=== PATIENT | male | born 1940 | race American Indian/Alaskan Native ===

== ENCOUNTER 2016-08-07 11:10 | Inpatient (IN) | payer MEDICARE ==
[2016-08-07] MEDS ORDERED: NACL 0.9% 500 ML 500 ML IV ONE (11:31)
[2016-08-07] MEDS ORDERED: ROCEPHIN IV ONE (11:50)
[2016-08-07] MEDS ORDERED: VANCOMYCIN/NS 1 GM/250 ML 1 GM/250 ML BAG IV ONE ×2 (11:50→17:01)
[2016-08-07] MEDS ORDERED: NACL 0.9% 1000 ML 1,000 ML IV ONE (11:50)
--- NOTE | 2016-08-07 11:55 | Emergency Department Report ---
ED Shortness of Breath HPI - General Chief Complaint: Dyspnea/Respdistress Stated Complaint: POSS CVA Time Seen by Provider: 08/07/16 11:46 Source: EMS Mode of arrival: Stretcher Limitations: Altered Mental Status - History of Present Illness MD Complaint: shortness of breath, cough -: Gradual Severity: moderate Pain Scale: 4 Quality: dull, aching Consistency: constant Improves With: oxygen Worsens With: nothing Known History Of: COPD, asthma Context: recent URI Associated Symptoms: cough, sputum production Treatments Prior to Arrival: none - Related Data Home Oxygen Therapy: No Home Medications Medication Instructions Recorded Confirmed Last Taken Allopurinol [Zyloprim] 300 mg PO QDAY 05/07/16 05/07/16 05/06/16 Previous Rx's Medication Instructions Recorded Last Taken Type Aspirin [Aspirin TAB] 325 mg PO QDAY tablet 05/18/16 Unknown Rx Colchicine [Colcrys] 0.6 mg PO QDAY tablet 05/18/16 Unknown Rx Enoxaparin [Lovenox] 40 mg SUB-Q QDAY@1000 syringe 05/18/16 Unknown Rx Famotidine [Pepcid] 10 mg PO BID tablet 05/18/16 Unknown Rx Hydrochlorothiazide [HCTZ] 25 mg PO QDAY tablet 05/18/16 Unknown Rx Lisinopril [Zestril TAB] 10 mg PO QDAY tablet 05/18/16 Unknown Rx Metoprolol [Lopressor TAB] 50 mg PO BID tablet 05/18/16 Unknown Rx Simvastatin [Zocor TAB] 20 mg PO QHS tablet 05/18/16 Unknown Rx Thiamine [Vitamin B-1] 100 mg PO QDAY tablet 05/18/16 Unknown Rx amLODIPine [Norvasc] 2.5 mg PO QDAY tablet 05/18/16 Unknown Rx Allergies Allergy/AdvReac Type Severity Reaction Status Date / Time No Known Allergies Allergy Unverified 05/06/16 19:38 ED Review of Systems ROS: Stated complaint: POSS CVA Other details as noted in HPI Comment: Unobtainable due to pts medical conditions ED Past Medical Hx - Past Medical History Hx Hypertension: Yes Hx CVA: Yes Hx Congestive Heart Failure: No Hx Diabetes: Yes Hx Asthma: No Hx COPD: No - Surgical History Additional Surgical History: unknown - Social History Smoking Status: Unknown if ever smoked Substance Use Type: None - Medications Home Medications: Home Medications Medication Instructions Recorded Confirmed Last Taken Type Allopurinol [Zyloprim] 300 mg PO QDAY 05/07/16 05/07/16 05/06/16 History Aspirin [Aspirin TAB] 325 mg PO QDAY tablet 05/18/16 Unknown Rx Colchicine [Colcrys] 0.6 mg PO QDAY tablet 05/18/16 Unknown Rx Enoxaparin [Lovenox] 40 mg SUB-Q QDAY@1000 syringe 05/18/16 Unknown Rx Famotidine [Pepcid] 10 mg PO BID tablet 05/18/16 Unknown Rx Hydrochlorothiazide [HCTZ] 25 mg PO QDAY tablet 05/18/16 Unknown Rx Lisinopril [Zestril TAB] 10 mg PO QDAY tablet 05/18/16 Unknown Rx Metoprolol [Lopressor TAB] 50 mg PO BID tablet 05/18/16 Unknown Rx Simvastatin [Zocor TAB] 20 mg PO QHS tablet 05/18/16 Unknown Rx Thiamine [Vitamin B-1] 100 mg PO QDAY tablet 05/18/16 Unknown Rx amLODIPine [Norvasc] 2.5 mg PO QDAY tablet 05/18/16 Unknown Rx ED Physical Exam - General Limitations: Altered Mental Status General appearance: alert, obtunded, in distress - Head Head exam: Present: atraumatic, normocephalic - Eye Eye exam: Present: normal appearance - ENT ENT exam: Present: mucous membranes moist - Neck Neck exam: Present: normal inspection - Respiratory Respiratory exam: Present: respiratory distress, wheezes, rales, rhonchi - Cardiovascular Cardiovascular Exam: Present: regular rate, normal rhythm. Absent: systolic murmur, diastolic murmur, rubs, gallop - GI/Abdominal GI/Abdominal exam: Present: soft, normal bowel sounds - Rectal Rectal exam: Present: deferred - Extremities Exam Extremities exam: Present: normal inspection - Back Exam Back exam: Present: normal inspection - Neurological Exam Neurological exam: Present: alert - Psychiatric Psychiatric exam: Present: normal affect, normal mood - Skin Skin exam: Present: warm, dry, intact, normal color. Absent: rash ED Course Vital Signs 08/07/16 08/07/16 11:25 12:33 Temperature 99.5 F 99.8 F H Pulse Rate 78 84 Respiratory 24 22 Rate Blood Pressure 143/81 Blood Pressure 150/84 [Left] O2 Sat by Pulse 94 98 Oximetry ED Medical Decision Making - Lab Data Result diagrams: 08/07/16 12:03 08/07/16 12:03 - EKG Data Interpretation: no acute changes - Radiology Data Radiology results: report reviewed, image reviewed - Medical Decision Making patient will need admission for AMS , undermine etiology at this time , head ct neg cxr unchanged , elevated lactic acid , cultures done and abx given here in the ER Critical care attestation.: If time is entered above; I have spent that time in minutes in the direct care of this critically ill patient, excluding procedure time. ED Disposition Clinical Impression: CVA (cerebral vascular accident), Altered mental status, unspecified Disposition: OP ADMIT IP TO THIS HOSP Is pt being admited?: Yes Does the pt Need Aspirin: No Condition: Good Time of Disposition: 15:25
[2016-08-07 12:20] LABS: Basophils % (Auto) 0.5 % (0.0-1.8); Eosinophils % (Auto) 0.5 % (0.0-4.3); Hematocrit 38.5 % (35.5-45.6); Hemoglobin 12.6 gm/dl (11.8-15.2); Mean Corpuscular HGB Conc 33 % (32-34); Mean Corpuscular Hemoglobin 31 pg (28-32); Mean Corpuscular Volume 94 fl (84-94); Platelet Count 253 K/mm3 (140-440); White Blood Count 8.8 K/mm3 (4.5-11.0)
[2016-08-07 12:26] LABS: INR 1.03 (0.87-1.13)
[2016-08-07 12:27] LABS: Partial Thromboplastin Time 26.5 Sec. (24.2-36.6)
--- NOTE | 2016-08-07 12:37 | Admit Criteria Form ---
Admission Criteria Documentation: GENERAL ADMISSION CRITERIA (Place 'X' for any and all applicable criteria): Admission is indicated for ANY ONE of the following: [X ]I. Hemodynamic instability as indicated by ANY ONE of the following(1)(2 )(3)(4)(5): [ ]a) Vital sign abnormality not readily corrected by appropriate treatment within 12 to 24 hours indicated by ANY ONE of the following: [ ]i) Hypotension [ ]ii) Symptomatic Tachycardia unresponsive to treatment (eg , analgesia, fluids, sedation as indicated) [ ]iii) Orthostatic vital sign changes unresponsive to treatment (eg, fluids) [X ]b) Vital sign abnormality that is severe indicated by ANY ONE of the following: [X ]i) Inadequate perfusion indicated by ANY ONE of the following: [X ]1) Lactic acidosis (greater than 2 mmol/L) [ ]2) New abnormal capillary refill (greater than 3 seconds) [ ]3) Other metabolic acidosis (arterial pH less than 7.35) not otherwise explained [ ]4) Reduced urine output [ ]5) Altered mental status [ ]6) Myocardial Ischemia [ ]v) Mean arterial pressure[A] less than 60 mm Hg [ ]vi) Mean arterial pressure[A] less than 70 mm Hg after 30 minutes of appropriate treatment (eg, fluid resuscitation) [ ]vii) IV inotropic or vasopressor medication required to maintain adequate blood pressure or perfusion [ ]viii) Sustained heart rate greater than 120 beats per minute in adult or child 6 years or older[B]] [ ]II. Hypertension requiring inpatient treatment as indicated by ANY ONE of the following(6)(7)(8): [ ]a) SBP greater than 220 mm Hg or DBP greater than 120 mm Hg despite treatment [ ]b) SBP greater than 140 mm Hg or DBP greater than 100 mm Hg with evidence of acute end organ damage as indicated by ANY ONE of the following: [ ]i) Encephalopathy [ ]ii) Acute renal failure as indicated by new onset of ANY ONE of the following(9)(10)(11)(12)(13): [ ]1) A 3-fold rise in serum creatinine from baseline [ ]2) Serum creatinine greater than 4 mg/dL ( 354 micromoles/L) with acute rise greater than 0.5 mg/dL (44.2 micromoles/L) [ ]3) Reduction of more than 75% in estimated glomerular filtration rate from baseline [ ]4) Estimated glomerular filtration rate less than 35 mL/min/1.73m2 (0.59 mL/sec/1.73m2) in child up to 18 years of age [ ]5) Cessation of urine output indicated by ALL of the following: [ ]A. Adequate volume status [ ]B. Inadequate urine output as indicated by ANY ONE of the following: [ ]a. Urine output less than 0.3 mL/kg/hr for 24 hours [ ]b. Anuria (urine output less than 0.1 mL/kg/hr) for 12 hours [ ]iii) Aortic dissection [ ]iv) Myocardial ischemia [ ]v) Left ventricular heart failure [ ]vi) Retinal hemorrhage [ ]vii) Other significant finding [ ]c) Hypertension in child requiring inpatient treatment as indicated by ALL of the following(14)(15)(16): [ ]i) Outpatient treatment not effective, not available, or not appropriate [ ]ii) SBP or DBP greater than 95th percentile for age [ ]iii) Evidence of acute end organ damage as indicated by ANY ONE of the following: [ ]1) Altered mental status [ ]2) Acute renal failure as indicated by new onset of ANY ONE of the following(9)(10)(11)(12)(13): [ ]A. A 3-fold rise in serum creatinine from baseline [ ]B. Serum creatinine greater than 4 mg/dL (354 micromoles/L) with acute rise greater than 0.5 mg/dL (44.2 micromoles/L) [ ]C. Reduction of more than 75% in estimated glomerular filtration rate from baseline [ ]D. Estimated glomerular filtration rate less than 35 mL/min/1.73m2 (0.59 mL/sec/1.73m2)in child up to 18 years of age [ ]E. Cessation of urine output indicated by ALL of the following: [ ]a. Adequate volume status [ ]b. Inadequate urine output as indicated by ANY ONE of the following: [ ]1) Urine output less than 0.3 mL/kg/hr for 24 hours [ ]2) Anuria (urine output less than 0.1 mL/kg/hr) for 12 hours [ ]3) Severe headache [ ]4) Visual disturbance [ ]5) Retinal hemorrhage [ ]6) Other significant finding [ ]III. Acute cardiac or peripheral ischemia as indicated by ANY ONE of the following: [ ]a) Acute coronary syndrome(17)(18) [ ]b) Acute peripheral ischemia (eg, pulseless, cool, mottled, or cyanotic extremity)(19) [ ]IV. Cardiac arrhythmias or findings of immediate concern indicated by ANY ONE of the following(20)(21): [ ]a) Heart rhythms that are inherently dangerous or unstable indicated by ANY ONE of the following(22)(23)(24): [ ]i) Resuscitated ventricular fibrillation or cardiac arrest [ ]ii) Ventricular escape rhythm [ ]iii) Sustained ventricular tachycardia (30 seconds or more of ventricular rhythm at greater than 100 beats per minute) [ ]iv) Nonsustained ventricular tachycardia and ANY ONE of the following: [ ]1) Suspected cardiac ischemia as cause or consequence of ventricular tachycardia [ ]2) In setting of acute myocarditis [ ]b) Unstable cardiac conduction defects indicated by ANY ONE of the following(24)(25)(26): [ ]i) Type II second-degree atrioventricular block [ ]ii) Third-degree atrioventricular block [ ]iii) New-onset left bundle branch block with suspected myocardial ischemia [ ]c) Any heart rhythm and ANY ONE of the following(22)(23)(27)(28)( 29): [ ] i) Continuous long-term ECG monitoring needed (eg, initiation of drug requiring monitoring for more than 24 hours) [ ] ii) Patient has automatic implanted cardioverter defibrillator that is repeatedly firing, malfunctioning, or in need of immediate adjustment of settings beyond the scope of ambulatory or observation care. [ ]d) Heart rhythms of concern due to ANY ONE of the following: [ ]i) Hypotension [ ]ii) Respiratory distress [ ]iii) Association with other significant symptoms (eg, bradycardia with syncope or ongoing dizziness, supraventricular tachycardia with chest pain) (27)(28) (30) [ ] V. Severe heart failure as indicated by ANY ONE of the following ( 31)(32): [ ]a) Respiratory distress [ ]b) Hypotension [ ]c) Anasarca (refractory to outpatient therapy) [ ]d) Cardiac arrhythmias of immediate concern [ ]e) Myocardial ischemia [ ]. Respiratory abnormalities, including ANY ONE of the following(33)(34) (35)(36): [ ]a) Respiratory rate greater than 30 breaths per minute unresponsive to treatment [A] [ ]b) New saturation of arterial oxygen less than 90% [ ]c) New partial pressure of carbon dioxide greater than 44 mm Hg ( 5.9 kPa) [ ]d) Supplemental oxygen or respiratory treatments needed that are new or not performable at other levels of care [ ]e) New-onset cyanosis [ ]f) Inability to protect airway [ ]g) Chronic lung disease with severe deterioration (not responsive to emergency and observation care treatment as appropriate) as indicated by ANY ONE of the following(34)(36 ): [ ]i) SaO2 5% below baseline in patient with chronic hypoxemia [ ]ii) New requirement for supplemental oxygen to keep SaO2 at baseline or acceptable level [ ]iii) Required supplemental oxygen performable only in acute inpatient setting [ ]iv) Severe airflow or ventilation abnormalities [ ]v) Previously mobile patient unable to walk between rooms [ ]vi Inability to eat or sleep due to dyspnea [ ]vii) Rapid rate of exacerbation onset [ ]viii) Altered mental status ]VII. Severe airflow or ventilation abnormalities (not responsive to emergency and observation care treatment as appropriate) as indicated by ANY ONE of the following(33)(34)(35)(37): [ ]a) PCO2 greater than 42 mm Hg (5.6 kPa) and pH less than 7.35 (new ) [ ]b) Documented PCO2 increased more than 5 mm Hg (0.7 kPa) from disease baseline [ ]c) Airflow measurements [B] less than 60% of previous best or predicted (eg, peak expiratory flow rate less than 300 L/minute) despite intensive emergent treatment [C] [ ]d) Required respiratory treatments that are performable only in acute inpatient setting [ ]VIII. Impending or actual respiratory arrest ( Also use Respiratory Failure GRG for severe respiratory disease and long-term mechanical ventilation patients) [ ]IX. Neurologic abnormalities, including ANY ONE of the following: [ ]a) New findings that suggest ANY ONE of the following: [ ]i) DOOR PANELER infection(38) [ ]ii) Cerebral bleeding, ischemia, or vasospasm(39)(40) [ ]iii) Increased intracranial pressure, hydrocephalus, or cerebral edema(41)(42)(43) [ ]iv) Spinal cord injury(44) [ ]b) Uncontrolled seizures(45) [ ]c) New-onset coma (eg, [place] coma scale score less than 9) or unexplained abnormal mental status (eg, [place] coma scale score less than 14) [D](41)(46)(47) [ ]X. New-onset severe neurologic findings requiring inpatient care; examples include(42)(48)(49): [ ]a) Papilledema [ ]b) Cerebral edema [ ]c) Mass effect on CT scan [ ]XI. Suspected acute intra-abdominal process with peritoneal signs, abdominal mass, or similar findings (50)(51)(52) [ ]XII. Severe physiologic disorder remaining after emergency or observation level care (as appropriate) as indicated by ANY ONE of the following (53): [ ]a) Significant dehydration [ ]b) Diabetic ketoacidosis [ ]c) Hyperglycemic hyperosmolar state (eg, osmolality greater than 320 mOsm/kg (mmol/kg) [ ]d) Hypoglycemia [ ]e) Other (new) acid-base disorder with pH less than 7.35 or greater than 7.5(54) [ ]f) Thyroid storm (55) [ ]g) Myxedema coma (55) [ ]XIII. Abdominal abnormalities with ANY ONE of the following(56)(57): [ ]a) Absent bowel sounds with complete ileus [ ]b) Signs of intestinal obstruction or peritonitis [E] [ ]c) Nausea and vomiting that cannot be controlled with outpatient or observation care [ ]XIV. Acute renal failure as indicated by new onset of ANY ONE of the following(9)(10)(11)(12)(13): [ ]a) A 3-fold rise in serum creatinine from baseline [ ]b) Serum creatinine greater than 4 mg/dL (354 micromoles/L) with acute rise greater than 0.5 mg/dL (44.2 micromoles/L) [ ]c) Reduction of more than 75% in estimated glomerular filtration rate from baseline [ ]d) Estimated glomerular filtration rate less than 35 mL/min/ 1.73m2 (0.59 mL/sec/1.73m2) in child up to 18 years of age [ ]e) Cessation of urine output indicated by ALL of the following: [ ]i) Adequate volume status [ ]ii) Inadequate urine output as indicated by ANY ONE of the following: [ ]1) Urine output less than 0.3 mL/kg/hr for 24 hours [ ]2) Anuria (urine output less than 0.1 mL/kg/hr) for 12 hours [ ]XV. Significant uremic complications as indicated by ANY ONE of the following(58)(59)(60): [ ]a) Outpatient therapy is ineffective or not feasible for ANY ONE of the following: [ ]i) Severe heart failure [ ]ii) Severehypertension [ ]iii) Pleural effusion [ ]iv) Pericarditis or pericardial effusion [ ]b) Cardiac arrhythmias of immediate concern [ ]c) Intractable nausea or vomiting [ ]d) Recurrent seizures [ ]e) Encephalopathy [ ]f) Bleeding abnormalities (eg, platelet dysfunction) with active (eg, gastrointestinal) bleeding [ ]g) Dialysis indicated before long-term access or ambulatory arrangements can be made [ ]h) Significant metabolic or electrolyte abnormalities (eg, severe acidosis or hyperkalemia) [ ]XVI. High fever or other high-risk infection situation as indicated by ANY ONE of the following(61)(62)(63)(64): [ ]a) Outpatient and observation care antimicrobial treatment unavailable, not effective, or not appropriate [ ]b) Documented bacteremia [ ]c) Temperature greater than 40.5 degrees C (104.9 degrees F) ( oral) [ ]d) Temperature greater than 39.5 degrees C (103.1 degrees F) ( oral) or less than 36 degrees C (96.8 degrees F) (rectal) that does not respond to e treatment and observation care [ ] XVII. Temperature less than 95 degrees F (35 degrees C)(rectal)(65) [ ] XVIII. Severe nutritional abnormalities as indicated by ALL of the following (66)(67): [ ]a) Inability to tolerate or establish sufficient oral or other enteral nutrition in outpatient setting [ ]b) Parenteral nutrition regimen need that must be implemented on inpatient basis [ ] XIX. Severe electrolyte abnormalities indicated by ALL of the following(68) (69)(70): [ ]a) Electrolytes and associated findings are not as expected for patient baseline or acceptable treatment effects. [ ]b) Severe abnormalities indicated by ANY ONE of the following: [ ]i) Sodium less than 130 mEq/L (mmol/L) (new) [ ]ii)Sodium less than 135 mEq/L (mmol/L) with ANY ONE of the following: [ ]1) Uncorrectable (to near normal or chronic baseline) after trial of outpatient and emergency treatment [ ]2) Altered mental status [ ]3) Seizures [ ]4) Severe medical etiology requiring inpatient management (eg, heart failure, hypovolemia) [ ]iii) Sodium greater than 155 mEq/L (mmol/L) [ ]iv) Sodium greater than 150 mEq/L (mmol/L) with ANY ONE of the following: [ ]1) Uncorrectable (to near normal or chronic baseline) with outpatient and emergency treatment [ ]2) Altered mental status [ ]3) Seizures [ ]4) Severe medical etiology (eg, hypovolemia, diabetes insipidus) [ ]v) Potassium less than 2.5 mEq/L (mmol/L) despite outpatient and emergency treatment [ ]vi) Potassium less than 3 mEq/L (mmol/L) with ANY ONE of the following: [ ]1) Weakness [ ]2) Cardiac abnormality (eg, arrhythmia, conduction disturbance) [ ]3) Cardiac ischemia [ ]4) Ileus [ ]5) Ongoing medical cause requiring inpatient management (eg, acute renal wasting or SIADH) [ ]6) Other severe symptoms [ ]vii) Potassium greater than 6.5 mEq/L (mmol/L) [ ]viii) Potassium greater than 5 mEq/L (mmol/L) with ANY ONE of the following: [ ]1) Uncorrectable (to near normal or chronic baseline) with outpatient and emergency treatment [ ]2) Severe ECG findings [F] [ ]3) Acute worsening of renal failure (creatinine greater than 2.5 mg/dL (221 micromoles/L) or significant elevation for age and size) [ ]4) Severe weakness [ ]5) Severe medical etiology (eg, hemolysis, infection, drug overdose) [ ]ix) Calcium less than 7 mg/dL (1.75 mmol/L) despite outpatient and emergency treatment (72) [ ]x) Calcium less than 8 mg/dL (2 mmol/L) with significant symptoms or findings; examples include(72): [ ]1) Altered mental status [ ]2) Muscle spasms [ ]3) Seizures [ ]4) Breathing difficulty [ ]5) Cardiac abnormality (eg, arrhythmia or conduction disturbance) [ ]xi) Calcium greater than 14 mg/dL (3.5 mmol/L)(72) [ ]xii) Calcium greater than 12 mg/dL (3 mmol/L) with ANY ONE of the following(72): [ ]1) Uncorrectable (to near normal or chronic baseline) with outpatient and emergency treatment [ ]2) Significant dehydration or hypovolemia as indicated by ALL of the following(70)(73)(74): [ ]A. Not resolved with initial treatments [ ]B. Clinically significant dehydration as indicated by ANY ONE of the following: [ ]a. Vomiting refractory to outpatient treatment (ie, precluding oral rehydration) [ ]b. Inability to drink [ ]c. Hypernatremia or other electrolyte abnormality unable to be corrected with outpatient and emergency treatment [ ]d. Failure to remain hydrated with outpatient therapy [ ]e. Reduced urine output [ ]f. Hypotension [ ]g. Serious cause for dehydration requiring acute hospitalization (eg, bowel obstruction, increased intracranial pressure, infectious cause) [ ]h. Child with ANY ONE of the following(75): [ ]1) Severe abdominal tenderness [ ]2) Adequate care not available at home [ ]3) Severe dehydration ( greater than 9% loss of body weight) [ ]4) Significant symptoms or findings; examples include: [ ]A. Altered mental status [ ]B. Cardiac abnormality (eg, arrhythmia, conduction disturbance) [ ]C. Malignant etiology requiring inpatient treatment [ ]xiii) Phosphorus less than 1 mg/dL (0.32 mmol/L) [ ]xiv) Phosphorus less than 1.5 mg/dL (0.48 mmol/L) with ANY ONE of the following: [ ]1) Patient unresponsive to outpatient and emergency treatment [ ]2) Significant symptoms or findings; examples include: [ ]A. Weakness [ ]B. Altered mental status [ ]C. Breathing difficulty [ ]D. Seizures [ ]E. Rhabdomyolysis [ ]xv) Phosphorus greater than 10 mg/dL (3.2 mmol/L) [ ]xvi) Phosphorus greater than 4.5 mg/dL (1.45 mmol/L) (new) with ANY ONE of the following: [ ]1) Severe medical etiology (eg, crush injury, acute renal failure) [ ]2) Associated hypocalcemia with significant findings; examples include: [ ]A. Neurologic symptoms [ ]B. Altered mental status [ ]C. Muscle spasms [ ]D. Seizures [ ]E. Breathing difficulty [ ]F. Cardiac abnormality (eg, arrhythmia, conduction disturbance) [ ]xvii) Magnesium less than 1 mg/dL (0.41 mmol/L) [ ]xviii) Magnesium less than 1.5 mg/dL (0.62 mmol/L) with ANY ONE of the following: [ ]1) Patient unresponsive to outpatient and emergency treatment [ ]2) Associated hypocalcemia with significant findings; examples include: [ ]A. Altered mental status [ ]B. Muscle spasms [ ]C. Seizures [ ]D. Breathing difficulty [ ]E. Cardiac abnormality (eg, arrhythmia , conduction disturbance) [ ]3) Associated hypokalemia (potassium less than 3 mEq/L (mmol/L)) with risk of arrhythmia [ ]xix) Magnesium greater than 4 mEq/L (2 mmol/L) [ ]xx) Magnesium greater than 2.5 mEq/L (1.25 mmol/L) with significant symptoms or findings; examples include: [ ]1) Weakness [ ]2) Altered mental status [ ]3) Cardiac abnormality (eg, arrhythmia, conduction disturbance) [ ]4) Breathing difficulty [ ]5) Severe medical etiology (eg, renal failure, hypovolemia) [ ]xxi) Uric acid greater than 20 mg/dL (1190 micromoles/L)(76) [ ]xxii) Uric acid greater than 8 mg/dL (476 micromoles/L) with significant symptoms or findings of tumor lysis syndrome; examples include(76): [ ]1) Creatinine greater than 1.5 times upper limit of normal [ ]2) Cardiac abnormality (eg, arrhythmia, conduction disturbance) [ ]3) Seizure [ ]XX. Acute blood loss causing significant abnormality as indicated by ANY ONE of the following(77)(78): [ ]a) Hemoglobin less than 10 g/dL (100 g/L) (not baseline) [ ]b) Hematocrit less than 30% (0.30) (not baseline) [ ]c) Repeat hematocrit decreased more than 2% (0.02) [ ]d) Uncontrolled bleeding [ ]XXI. Severe anemia indicated by ANY ONE of the following(78)(79): [ ]a) Altered mental status [ ]b) Chest pain [ ]c) Exertional dyspnea [ ]d) Syncope [ ]e) Other findings suggesting inadequate perfusion [ ]f) Treatment with transfusion or volume replacement is ineffective at resolving ANY ONE of the following [G]: [ ]i) Tachycardia for age [ ]ii) Orthostatic vital sign changes as indicated by ANY ONE of the following(80): [ ]1) Fall in SBP of 20 mm Hg or more 1 to 3 minutes after patient sits or stands from recumbent position [ ]2) Fall in DBP of 10 mm Hg or more 1 to 3 minutes after patient sits or stands from recumbent position [ ]XXII. High-risk low platelet count as indicated by ANY ONE of the following( 81)(82): [ ]a) Severe or life-threatening bleeding (eg, intracranial, major gastrointestinal, or extensive mucosal bleeding), with any reduced platelet count [ ]b) Platelet count less than 20,000/mm3 (20 x109/L) with any active bleeding [ ]c) Platelet count less than 10,000/mm3 (10 x109/L) with minor purpura or petechiae [ ]d) Platelet count less than 5000/mm3 (5 x109/L) [ ]e) Low platelet count with hemolytic anemia [ ]XXIII. Disseminated intravascular coagulation(77)(83) [ ]XXIV. Severe adverse drug or systemic toxin reaction requiring inpatient treatment; examples include(84)(85): [ ]a) Serotonin syndrome(86) [ ]b) Neuroleptic malignant syndrome(86) [ ]c) Cholinergic syndrome with severe symptoms (eg, bronchorrhea, weakness, mental status changes, seizures) [ ]d) Sympathetic syndrome with severe symptoms (eg, seizures, mental status changes, cardiac dysrhythmias) [ ]e) Anticholinergic syndrome [ ]XXV. Severe pain requiring acute inpatient management as indicated by ALL of the following (87)(88)(89): [ ]a) Continuous or frequent (eg, every 2 to 4 hours) parenteral analgesics required [H] [ ]b) Rapid improvement expected from treatment or acute intervention (eg, surgery, anesthesia procedure) [ ]XXVI.Severe behavioral health issues judged unmanageable at a lower level of care (eg, residential) in a patient who is ANY ONE of the following(91) [ ]a) Acutely suicidal [ ]b) A danger to self (eg, self-mutilating or suicidal behavior) [ ]c) A danger to others (eg, assaultive or homicidal behavior) [ ]d) Incapacitated because of grave disability (eg, inability to provide for self at lower level of care) (92) [ ]XXVII. Inpatient monitoring needed; examples include(1)(3)(87)(93)(94)(95)(96 ): [ ]a) Vital signs, neurologic signs, or vascular checks more frequently than every 4 hours [ ]b) Cardiac or respiratory monitoring beyond the scope (eg, over 24 hours) of observation care [ ]c) Pulmonary artery catheter monitoring [ ]d) Suspected compartment syndrome(97) (98) [ ]e) Cerebral bleeding, hydrocephalus, or vasospasm monitoring [ ]f) Increased intracranial pressure or cerebral edema monitoring [ ]g) monitoring [ ]XXVIII. Treatment requiring inpatient care; examples include: [ ]a) IV fluid to replace significant ongoing losses (greater than 3 L/m2 per day)(53) [ ]b) High concentration oxygen (greater than 40%)(33)(99)(100) [ ]c) Frequent respiratory therapy (more frequently than every 4 hours) to maintain airflow rates greater than 60% of baseline(33)(99)(100) [ ]d) Epidural analgesia(87) [ ]e) IV anticoagulation, vasoactive, or antiarrhythmic medication(19 )(23) [ ]f) Acute thrombolytics (generally require 24 hours of observation )(101)(102) [ ]XXIX. Emergency procedures needed; examples include: [ ]a) Emergency inpatient surgery [ ]b) Temporary pacemaker placement(103) [ ]c) Chest tube placement with active evacuation (eg, suction, drainage)(104) [ ]d) Emergent cardioversion(105) [ ]e) Emergent cardiac or vascular procedures (eg, cardiac catheterization, angioplasty) (17)(18) [ ]f) Emergent dialysis access placement and institution(10)(106) [ ]g) Emergent pericardiocentesis(107) [ ]h) Emergent plasmapheresis or leukapheresis(83) [ ]i) Emergent tracheostomy The original [employer] content created by [employer] has been revised. The portions of the content which have been revised are identified through the use of italic text or in bold, and [employer] has neither reviewed nor approved the modified material. All other unmodified content is copyright [employer]. Please see references footnoted in the original [employer] edition 2016 Admission Criteria Met: Yes
[2016-08-07 12:38] LABS: Alanine Aminotransferase 11 units/L (7-56); Albumin 3.6 g/dL (3.9-5); Albumin/Globulin Ratio 1.1 %; Alkaline Phosphatase 51 units/L (35-129); Anion Gap 22 mmol/L; BUN/Creatinine Ratio 21.81; Blood Urea Nitrogen 24 mg/dL (9-20); Calcium 8.9 mg/dL (8.4-10.2); Carbon Dioxide 20 mmol/L (22-30); Glucose 125 mg/dL (75-100); Potassium 4.2 mmol/L (3.6-5.0); Sodium 138 mmol/L (137-145); Total Protein 6.8 g/dL (6.3-8.2)
--- NOTE | 2016-08-07 12:44 | XRay Report ---
PORTABLE CHEST INDICATION: Dyspnea. COMPARISON: 05/06/2016 FINDINGS: Portable, frontal chest radiograph demonstrates stable exaggerated cardiomediastinal silhouette and slightly crowded lung markings, given poorer inspiration. No pleural effusions or CHF. Stable bones. EKG leads. CONCLUSION: No acute chest process with poorer inspiration, as described. Thank you for the opportunity to participate in this patient's care.
[2016-08-07] MEDS ORDERED: ROCEPHIN/NS 1 GM/50 ML 1 GM/50 ML BAG IV ONE (13:17)
[2016-08-07 14:13] LABS: Bilirubin,Urine NEG (Negative); Blood,Urine NEG (Negative); Ketones,Urine NEG (Negative); Leukocyte Esterase,Urine NEG (Negative); Mucus,Urine FEW /HPF; Nitrite,Urine NEG (Negative); Protein,Urine <15 mg/dL mg/dL (Negative); Urobilinogen,Urine < 2.0 mg/dL (<2.0); WBC,Urine < 1.0 /HPF (0.0-6.0)
[2016-08-07 14:22] LABS: RBC,Urine < 1.0 /HPF (0.0-6.0)
--- NOTE | 2016-08-07 15:13 | History and Physical Report ---
History of Present Illness Chief complaint: weakness, difficulty breathing, History of present illness: 75 YO Male with HTN, CVA with LHP and Dysarthria, DM, COPD, Asthma, Gout, Chronic Respiratory Failure presents to ED for evaluation. Pt unable to provide history. Pt family report patient found to have weakness and difficulty breathing over the past 3 days with worsening symptoms for 1 day. No reports of fever, chills, CP, Palpitatons, NVD, Syncope, Falls, trauma, brbpr. Pt family acknowledge new onset weakness on the right side, inability to speak like he normally does. Past History Past Medical History: COPD, diabetes, heart failure, hypertension, stroke Past Surgical History: No surgical history, Other (reviewed) Social history: , lives with family. denies: smoking, alcohol abuse, prescription drug abuse Family history: diabetes, hypertension Medications and Allergies Allergies Allergy/AdvReac Type Severity Reaction Status Date / Time No Known Allergies Allergy Unverified 05/06/16 19:38 Home Medications Medication Instructions Recorded Confirmed Last Taken Type Allopurinol [Zyloprim] 300 mg PO QDAY 05/07/16 08/07/16 05/06/16 History Aspirin [Aspirin TAB] 325 mg PO QDAY tablet 05/18/16 08/07/16 Unknown Rx Colchicine [Colcrys] 0.6 mg PO QDAY tablet 05/18/16 08/07/16 Unknown Rx Enoxaparin [Lovenox] 40 mg SUB-Q QDAY@1000 syringe 05/18/16 08/07/16 Unknown Rx Famotidine [Pepcid] 10 mg PO BID tablet 05/18/16 08/07/16 Unknown Rx Hydrochlorothiazide [HCTZ] 25 mg PO QDAY tablet 05/18/16 08/07/16 Unknown Rx Lisinopril [Zestril TAB] 10 mg PO QDAY tablet 05/18/16 08/07/16 Unknown Rx Metoprolol [Lopressor TAB] 50 mg PO BID tablet 05/18/16 08/07/16 Unknown Rx Simvastatin [Zocor TAB] 20 mg PO QHS tablet 05/18/16 08/07/16 Unknown Rx Thiamine [Vitamin B-1] 100 mg PO QDAY tablet 05/18/16 08/07/16 Unknown Rx amLODIPine [Norvasc] 2.5 mg PO QDAY tablet 05/18/16 08/07/16 Unknown Rx Review of Systems ROS unobtainable: due to mental status Exam - Constitutional Vitals: Temp Pulse Resp BP Pulse Ox 99.8 F H 84 22 150/84 98 08/07/16 12:33 08/07/16 12:33 08/07/16 12:33 08/07/16 12:33 08/07/16 12:33 General appearance: Present: mild distress - EENT Eyes: Present: PERRL ENT: hearing intact - Neck Neck: Present: supple - Respiratory Respiratory effort: labored Respiratory: bilateral: diminished - Cardiovascular Rhythm: regular Heart Sounds: Present: S1 & S2 - Extremities Extremities: no ischemia Extremity abnormal: edema Peripheral Pulses: within normal limits - Abdominal General gastrointestinal: Present: soft, non-tender, non-distended Male genitourinary: Present: normal - Integumentary Integumentary: Present: clear, dry, decreased turgor - Musculoskeletal Musculoskeletal: right sided weakness, left sided weakness, generalized weakness - Psychiatric Psychiatric: no intact judgment & insight, no memory intact - Neurologic Neurologic: focal deficits, no moves all extremities, no gait normal Results - Labs CBC & Chem 7: 08/07/16 12:03 08/07/16 12:03 Labs: Abnormal lab results 08/07/16 08/07/16 08/07/16 Range/Units 12:03 12:03 12:03 Seg Neutrophils % 80.4 H (40.0-70.0) % Carbon Dioxide 20 L (22-30) mmol/L BUN 24 H (9-20) mg/dL Glucose 125 H (75-100) mg/dL Lactic Acid 2.90 H* (0.7-2.0) mmol/L Albumin 3.6 L (3.9-5) g/dL 08/07/16 Range/Units 14:25 Seg Neutrophils % (40.0-70.0) % Carbon Dioxide (22-30) mmol/L BUN (9-20) mg/dL Glucose (75-100) mg/dL Lactic Acid 2.20 H* (0.7-2.0) mmol/L Albumin (3.9-5) g/dL Assessment and Plan - Patient Problems (1) CVA (cerebral vascular accident) Current Visit: Yes Status: Acute Qualifiers: CVA mechanism: C Precerebral and cerebral artery: P Laterality of affected vessel: L Plan to address problem: Stroke Protocol: CT Head, MRI/MRA, Antiplatelet therapy, carotid doppler, PT/OT / Speech therapy, supportive care. (2) Metabolic encephalopathy Current Visit: Yes Status: Acute Plan to address problem: trat stroke, IVF replacement, supportive care. (3) Quadriplegia Current Visit: Yes Status: Acute Plan to address problem: secondary to CVA. PT /OT consulted, (4) Accelerated hypertension Current Visit: Yes Status: Acute Plan to address problem: monitor bp q shift, supportie care,Target systolic JADON overnight between 160-170 (5) DVT prophylaxis Current Visit: Yes Status: Acute
--- NOTE | 2016-08-07 15:20 | Cat Scan Report ---
CT HEAD WITHOUT CONTRAST INDICATION: Altered mental status. Last well known time 0500 hours. COMPARISON: 05/06/2016 CT and 05/09/2016 MRI. FINDINGS: Noncontrast head CT limited due to motion artifact with images repeated, though demonstrates stable age-appropriate ventricles and sulci and approximately 2.8 cm right parietal old ischemic hypodensity on axial image 40, series 4. Mild periventricular hypodensities. No definite acute infarct, hemorrhage, mass effect or midline shift. No abnormal extra-axial fluid collections. Normal posterior fossa with preserved basilar cisterns. Clear imaged paranasal sinuses and mastoid air cells. Atherosclerotic internal carotid artery calcifications. Normal calvarium and scalp. Few anterior mandibular teeth remaining. CONCLUSION: No acute intracranial CT abnormality or significant interval change, as described. Please correlate. Thank you for the opportunity to participate in this patient's care.
[2016-08-07] MEDS ORDERED: TYLENOL PO PRN (15:56)
[2016-08-07] MEDS ORDERED: SODIUM CHLORIDE FLUSH SYRINGE 10 ML IV PRN (15:56)
[2016-08-07] MEDS ORDERED: ZOFRAN IV PRN (15:56)
[2016-08-07] MEDS ORDERED: ATIVAN ONE (18:29)
[2016-08-07] MEDS ORDERED: KEPPRA 1,000 MG in D5W 100 ML IV SCH (18:37)
[2016-08-07] MEDS ORDERED: KEPPRA 1,000 MG/NS 0.75% 100ML 1,000 MG/100 ML BAG IV ONE (18:47)
[2016-08-07] MEDS ORDERED: ZOCOR PO SCH (22:00)
[2016-08-07] MEDS ORDERED: KEPPRA PO SCH (22:00)
[2016-08-07] MEDS: LOPRESSOR PO SCH (23:19)
[2016-08-07] MEDS: ZOCOR PO SCH (23:19)
[2016-08-07] MEDS: PEPCID PO SCH (23:19)
[2016-08-08] MEDS ORDERED: HCTZ PO SCH (10:00)
--- NOTE | 2016-08-08 10:03 | Progress Note ---
Assessment and Plan Assessment and plan: Right sided weakness. CT head neg. For MRI Brain today to r/o stroke Dysarthria. For MRI brain Hypertension. BP stable Diabetes mellitus type 2. Figerstick glucose qac and hs DVT prophylaxis with Lovenox History Interval history: Right sided weakness, Speech difficulty Shortness of breath Hospitalist Physical - Physical exam Narrative exam: Gen: appearance :Not in acute distress, HEENT: normocephalic, atraumatic Neck :supple no JVD Lungs: clear to auscultation bilaterally, no crackles, or wheezes Heart:S1 and S2 regular, no murmurs, no gallop, no rubs Abdomen soft, non-tender, non-distended, normal bowel sounds Extremities: no edema, no clubbing, or cyanosis Neuro : Awake, confused - Constitutional Vitals: Temp Pulse Resp BP Pulse Ox 97.5 F L 70 20 166/77 94 08/08/16 04:40 08/08/16 04:40 08/08/16 04:40 08/08/16 04:40 08/08/16 04:40 General appearance: Present: mild distress Results - Labs CBC & Chem 7: 08/07/16 12:03 08/08/16 20:57 Labs: Laboratory Last Values WBC 8.8 K/mm3 (4.5-11.0) 08/07/16 12:03 RBC 4.10 M/mm3 (3.65-5.03) 08/07/16 12:03 Hgb 12.6 gm/dl (11.8-15.2) 08/07/16 12:03 Hct 38.5 % (35.5-45.6) 08/07/16 12:03 MCV 94 fl (84-94) 08/07/16 12:03 MCH 31 pg (28-32) 08/07/16 12:03 MCHC 33 % (32-34) 08/07/16 12:03 RDW 15.0 % (13.2-15.2) 08/07/16 12:03 Plt Count 253 K/mm3 (140-440) 08/07/16 12:03 Lymph % (Auto) 13.4 % (13.4-35.0) 08/07/16 12:03 [place] % (Auto) 5.2 % (0.0-7.3) 08/07/16 12:03 Eos % (Auto) 0.5 % (0.0-4.3) 08/07/16 12:03 Baso % (Auto) 0.5 % (0.0-1.8) 08/07/16 12:03 Lymph # 1.2 K/mm3 (1.2-5.4) 08/07/16 12:03 [place] # 0.5 K/mm3 (0.0-0.8) 08/07/16 12:03 Eos # 0.0 K/mm3 (0.0-0.4) 08/07/16 12:03 Baso # 0.0 K/mm3 (0.0-0.1) 08/07/16 12:03 Seg Neutrophils % 80.4 % (40.0-70.0) H 08/07/16 12:03 Seg Neutrophils # 7.1 K/mm3 (1.8-7.7) 08/07/16 12:03 PT 13.4 Sec. (12.2-14.9) 08/07/16 12:03 INR 1.03 (0.87-1.13) 08/07/16 12:03 APTT 26.5 Sec. (24.2-36.6) 08/07/16 12:03 VBG pH 7.371 (7.320-7.420) 08/07/16 12:15 Sodium 138 mmol/L (137-145) 08/07/16 12:03 Potassium 4.2 mmol/L (3.6-5.0) 08/07/16 12:03 Chloride 100.0 mmol/L (98-107) 08/07/16 12:03 Carbon Dioxide 20 mmol/L (22-30) L 08/07/16 12:03 Anion Gap 22 mmol/L 08/07/16 12:03 BUN 24 mg/dL (9-20) H 08/07/16 12:03 Creatinine 1.1 mg/dL (0.8-1.5) 08/07/16 12:03 Estimated GFR > 60 ml/min 08/07/16 12:03 BUN/Creatinine Ratio 21.81 % 08/07/16 12:03 Glucose 125 mg/dL (75-100) H 08/07/16 12:03 POC Glucose 197 (70-105) H 08/07/16 19:11 Lactic Acid 2.20 mmol/L (0.7-2.0) H* 08/07/16 14:25 Calcium 8.9 mg/dL (8.4-10.2) 08/07/16 12:03 Total Bilirubin 0.30 mg/dL (0.1-1.2) 08/07/16 12:03 AST 10 units/L (5-40) 08/07/16 12:03 ALT 11 units/L (7-56) 08/07/16 12:03 Alkaline Phosphatase 51 units/L (35-129) 08/07/16 12:03 Troponin T < 0.010 ng/mL (0.00-0.029) 08/07/16 12:03 Total Protein 6.8 g/dL (6.3-8.2) 08/07/16 12:03 Albumin 3.6 g/dL (3.9-5) L 08/07/16 12:03 Albumin/Globulin Ratio 1.1 % 08/07/16 12:03 Triglycerides 123 mg/dL (2-149) 08/08/16 08:50 Cholesterol 141 mg/dL (50-199) 08/08/16 08:50 LDL Cholesterol Direct 85 mg/dL (50-130) 08/08/16 08:50 HDL Cholesterol 32 mg/dL (40-59) L 08/08/16 08:50 Cholesterol/HDL Ratio 4.40 % 08/08/16 08:50 Urine Color Yellow (Yellow) 08/07/16 12:34 Urine Turbidity Clear (Clear) 08/07/16 12:34 Urine pH 5.0 (5.0-7.0) 08/07/16 12:34 Ur Specific [place] 1.019 (1.003-1.030) 08/07/16 12:34 Urine Protein <15 mg/dl mg/dL (Negative) 08/07/16 12:34 Urine Glucose (UA) Neg mg/dL (Negative) 08/07/16 12:34 Urine Ketones Neg mg/dL (Negative) 08/07/16 12:34 Urine Blood Neg (Negative) 08/07/16 12:34 Urine Nitrite Neg (Negative) 08/07/16 12:34 Urine Bilirubin Neg (Negative) 08/07/16 12:34 Urine Urobilinogen < 2.0 mg/dL (<2.0) 08/07/16 12:34 Ur Leukocyte Esterase Neg (Negative) 08/07/16 12:34 Urine WBC (Auto) < 1.0 /HPF (0.0-6.0) 08/07/16 12:34 Urine RBC (Auto) < 1.0 /HPF (0.0-6.0) 08/07/16 12:34 U Epithel Cells (Auto) < 1.0 /HPF (0-13.0) 08/07/16 12:34 Hyaline Casts 1 /LPF 08/07/16 12:34 Urine Mucus Few /HPF 08/07/16 12:34
[2016-08-08] MEDS: ASPIRIN PO SCH ×2 (11:00→11:45)
[2016-08-08] MEDS: ZYLOPRIM PO SCH ×2 (11:00→11:46)
[2016-08-08] MEDS: NORVASC PO SCH ×2 (11:00→11:47)
[2016-08-08] MEDS: PEPCID PO SCH ×2 (11:00→11:45)
[2016-08-08] MEDS: LOPRESSOR PO SCH ×2 (11:00→11:46)
[2016-08-08] MEDS: COLCRYS PO SCH ×2 (11:00→11:46)
[2016-08-08] MEDS: ZESTRIL PO SCH ×2 (11:00→11:46)
[2016-08-08] MEDS ORDERED: NACL 0.9% 250ML 250 ML ONE (11:31)
[2016-08-08] MEDS: LOVENOX SUB-Q SCH ×2 (11:40→11:47)
[2016-08-08] MEDS: VITAMIN B-1 PO SCH ×2 (11:47→11:59)
[2016-08-08] MEDS: KEPPRA 1,000 MG in D5W 100 ML IV SCH ×2 (11:48→22:10)
[2016-08-08] MEDS: ATIVAN IV PRN (16:26)
[2016-08-08 20:40] LABS: Chloride TNR mmol/L (98-107); Potassium TNR mmol/L (3.6-5.0); Sodium TNR mmol/L (137-145)
[2016-08-08 20:41] LABS: Anion Gap TNR mmol/L; Carbon Dioxide TNR mmol/L (22-30)
[2016-08-08 20:42] LABS: BUN/Creatinine Ratio TNR; Blood Urea Nitrogen TNR mg/dL (9-20); Glucose TNR mg/dL (75-100)
[2016-08-08 20:43] LABS: Calcium TNR mg/dL (8.4-10.2)
[2016-08-08 21:24] LABS: Anion Gap 21 mmol/L; Blood Urea Nitrogen 15 mg/dL (9-20); Calcium 9.2 mg/dL (8.4-10.2); Carbon Dioxide 24 mmol/L (22-30); Chloride 98.7 mmol/L (98-107); Glucose 134 mg/dL (75-100); Potassium 3.8 mmol/L (3.6-5.0); Sodium 140 mmol/L (137-145)
[2016-08-09] MEDS: ZOCOR PO SCH (04:16)
[2016-08-09] MEDS: LOPRESSOR PO SCH ×2 (04:16→18:02)
[2016-08-09] MEDS: PEPCID PO SCH ×2 (04:16→18:05)
[2016-08-09] MEDS: KEPPRA 1,000 MG in D5W 100 ML IV SCH (12:15)
--- NOTE | 2016-08-09 14:59 | Progress Note ---
Assessment and Plan Assessment and plan: Right sided weakness. CT head neg. Still awaiting MRI to be done. Started on Aspirin. Encephalopathy. He is confused Dysarthria. For MRI brain Hypertension. BP stable Diabetes mellitus type 2. Figerstick glucose qac and hs DVT prophylaxis with Lovenox History Interval history: Right sided weakness, Speech difficulty Shortness of breath Hospitalist Physical - Physical exam Narrative exam: Gen: appearance :Not in acute distress, HEENT: normocephalic, atraumatic Neck :supple no JVD Lungs: clear to auscultation bilaterally, no crackles, or wheezes Heart:S1 and S2 regular, no murmurs, no gallop, no rubs Abdomen soft, non-tender, non-distended, normal bowel sounds Extremities: no edema, no clubbing, or cyanosis Neuro : Awake, confused - Constitutional Vitals: Temp Pulse Resp BP Pulse Ox 97.9 F 111 H 20 156/101 96 08/09/16 12:00 08/09/16 12:00 08/09/16 12:00 08/09/16 12:00 08/09/16 12:00 General appearance: Present: mild distress Results - Labs CBC & Chem 7: 08/07/16 12:03 08/08/16 20:57 Labs: Laboratory Last Values WBC 8.8 K/mm3 (4.5-11.0) 08/07/16 12:03 RBC 4.10 M/mm3 (3.65-5.03) 08/07/16 12:03 Hgb 12.6 gm/dl (11.8-15.2) 08/07/16 12:03 Hct 38.5 % (35.5-45.6) 08/07/16 12:03 MCV 94 fl (84-94) 08/07/16 12:03 MCH 31 pg (28-32) 08/07/16 12:03 MCHC 33 % (32-34) 08/07/16 12:03 RDW 15.0 % (13.2-15.2) 08/07/16 12:03 Plt Count 253 K/mm3 (140-440) 08/07/16 12:03 Lymph % (Auto) 13.4 % (13.4-35.0) 08/07/16 12:03 [place] % (Auto) 5.2 % (0.0-7.3) 08/07/16 12:03 Eos % (Auto) 0.5 % (0.0-4.3) 08/07/16 12:03 Baso % (Auto) 0.5 % (0.0-1.8) 08/07/16 12:03 Lymph # 1.2 K/mm3 (1.2-5.4) 08/07/16 12:03 [place] # 0.5 K/mm3 (0.0-0.8) 08/07/16 12:03 Eos # 0.0 K/mm3 (0.0-0.4) 08/07/16 12:03 Baso # 0.0 K/mm3 (0.0-0.1) 08/07/16 12:03 Seg Neutrophils % 80.4 % (40.0-70.0) H 08/07/16 12:03 Seg Neutrophils # 7.1 K/mm3 (1.8-7.7) 08/07/16 12:03 PT 13.4 Sec. (12.2-14.9) 08/07/16 12:03 INR 1.03 (0.87-1.13) 08/07/16 12:03 APTT 26.5 Sec. (24.2-36.6) 08/07/16 12:03 VBG pH 7.371 (7.320-7.420) 08/07/16 12:15 Sodium 140 mmol/L (137-145) 08/08/16 20:57 Potassium 3.8 mmol/L (3.6-5.0) 08/08/16 20:57 Chloride 98.7 mmol/L (98-107) 08/08/16 20:57 Carbon Dioxide 24 mmol/L (22-30) 08/08/16 20:57 Anion Gap 21 mmol/L 08/08/16 20:57 BUN 15 mg/dL (9-20) 08/08/16 20:57 Creatinine 1.0 mg/dL (0.8-1.5) 08/08/16 20:57 Estimated GFR > 60 ml/min 08/08/16 20:57 BUN/Creatinine Ratio 15.00 % 08/08/16 20:57 Glucose 134 mg/dL (75-100) H 08/08/16 20:57 POC Glucose 197 (70-105) H 08/07/16 19:11 Lactic Acid 2.20 mmol/L (0.7-2.0) H* 08/07/16 14:25 Calcium 9.2 mg/dL (8.4-10.2) 08/08/16 20:57 Total Bilirubin 0.30 mg/dL (0.1-1.2) 08/07/16 12:03 AST 10 units/L (5-40) 08/07/16 12:03 ALT 11 units/L (7-56) 08/07/16 12:03 Alkaline Phosphatase 51 units/L (35-129) 08/07/16 12:03 Troponin T < 0.010 ng/mL (0.00-0.029) 08/07/16 12:03 Total Protein 6.8 g/dL (6.3-8.2) 08/07/16 12:03 Albumin 3.6 g/dL (3.9-5) L 08/07/16 12:03 Albumin/Globulin Ratio 1.1 % 08/07/16 12:03 Triglycerides 123 mg/dL (2-149) 08/08/16 08:50 Cholesterol 141 mg/dL (50-199) 08/08/16 08:50 LDL Cholesterol Direct 85 mg/dL (50-130) 08/08/16 08:50 HDL Cholesterol 32 mg/dL (40-59) L 08/08/16 08:50 Cholesterol/HDL Ratio 4.40 % 08/08/16 08:50 Urine Color Yellow (Yellow) 08/07/16 12:34 Urine Turbidity Clear (Clear) 08/07/16 12:34 Urine pH 5.0 (5.0-7.0) 08/07/16 12:34 Ur Specific [place] 1.019 (1.003-1.030) 08/07/16 12:34 Urine Protein <15 mg/dl mg/dL (Negative) 08/07/16 12:34 Urine Glucose (UA) Neg mg/dL (Negative) 08/07/16 12:34 Urine Ketones Neg mg/dL (Negative) 08/07/16 12:34 Urine Blood Neg (Negative) 08/07/16 12:34 Urine Nitrite Neg (Negative) 08/07/16 12:34 Urine Bilirubin Neg (Negative) 08/07/16 12:34 Urine Urobilinogen < 2.0 mg/dL (<2.0) 08/07/16 12:34 Ur Leukocyte Esterase Neg (Negative) 08/07/16 12:34 Urine WBC (Auto) < 1.0 /HPF (0.0-6.0) 08/07/16 12:34 Urine RBC (Auto) < 1.0 /HPF (0.0-6.0) 08/07/16 12:34 U Epithel Cells (Auto) < 1.0 /HPF (0-13.0) 08/07/16 12:34 Hyaline Casts 1 /LPF 08/07/16 12:34 Urine Mucus Few /HPF 08/07/16 12:34
[2016-08-09] MEDS: COLCRYS PO SCH (18:02)
[2016-08-09] MEDS: ASPIRIN PO SCH (18:02)
[2016-08-09] MEDS: NORVASC PO SCH (18:02)
[2016-08-09] MEDS: VITAMIN B-1 PO SCH (18:05)
[2016-08-09] MEDS: ZYLOPRIM PO SCH (18:06)
[2016-08-09] MEDS: ZESTRIL PO SCH (18:06)
[2016-08-09] MEDS: LOVENOX SUB-Q SCH (18:42)
[2016-08-10] MEDS: KEPPRA 1,000 MG in D5W 100 ML IV SCH ×3 (00:35→22:17)
[2016-08-10] MEDS: ZOCOR PO SCH ×2 (04:09→22:09)
[2016-08-10] MEDS: LOPRESSOR PO SCH ×3 (04:09→22:09)
[2016-08-10] MEDS: PEPCID PO SCH ×3 (04:09→22:08)
--- NOTE | 2016-08-10 07:42 | Vascular Lab Report ---
CAROTID DUPLEX STUDY: RIGHT PSVEDV CCA PROX: 7110 CCA DIST:91580 ICA PROX: 8523 ICA MID:58222 ICA DIST:49023 ECA: 8613 VERT: 108 28 LEFT PSVEDV CCA PROX: 7915 CCA DIST: 6210 ICA PROX: 6514 ICA MID: 6818 ICA DIST:40477 ECA: 49 6 VERT: 80 16 REASON FOR EXAM: Stroke. COMMENTS ON THE RIGHT: Doppler frequency analysis is consistent with 16 to 49 percent diameter reduction of the internal carotid artery. Minimal amount of plaque is seen. The common carotid artery is patent. The external carotid artery is patent. The vertebral artery has antegrade flow. COMMENTS ON THE LEFT: Doppler frequency analysis is consistent with 16 to 49 percent diameter reduction of the internal carotid artery. Minimal amount of plaque is seen. The common carotid artery is patent. The external carotid artery is patent. The vertebral artery has antegrade flow. IMPRESSION: Less than 50% diameter reduction in the internal carotid arteries bilaterally. Consider repeat carotid artery duplex in 12 months.
--- NOTE | 2016-08-10 09:26 | Progress Note ---
Assessment and Plan Assessment and plan: Right sided weakness, likely acute ischemic stroke. CT head neg. Still awaiting MRI to be done. Continue on Aspirin. New onset seizure. MRI may give etiology. Neurology to evaluate Encephalopathy. He is confused Dysphagia. Modified Barium swallow done yesterday, start pureed diet Dysarthria. For MRI brain Hypertension. BP stable Diabetes mellitus type 2. Figerstick glucose qac and hs DVT prophylaxis with Lovenox History of stroke. Discussed with family at bedside. History Interval history: Right sided weakness, Difficulty swallowing Dysarthria Hospitalist Physical - Physical exam Narrative exam: Gen: appearance :Not in acute distress, HEENT: normocephalic, atraumatic Neck :supple no JVD Lungs: clear to auscultation bilaterally, no crackles, or wheezes Heart:S1 and S2 regular, no murmurs, no gallop, no rubs Abdomen soft, non-tender, non-distended, normal bowel sounds Extremities: no edema, no clubbing, or cyanosis Neuro : Awake, confused,dysarthria, weakness on left - Constitutional Vitals: Temp Pulse Resp BP Pulse Ox 98.6 F 89 20 151/91 93 08/10/16 04:50 08/10/16 04:50 08/10/16 01:17 08/10/16 04:50 08/10/16 04:50 Results - Labs CBC & Chem 7: 08/14/16 05:34 08/14/16 05:34 Labs: Laboratory Last Values WBC 8.8 K/mm3 (4.5-11.0) 08/07/16 12:03 RBC 4.10 M/mm3 (3.65-5.03) 08/07/16 12:03 Hgb 12.6 gm/dl (11.8-15.2) 08/07/16 12:03 Hct 38.5 % (35.5-45.6) 08/07/16 12:03 MCV 94 fl (84-94) 08/07/16 12:03 MCH 31 pg (28-32) 08/07/16 12:03 MCHC 33 % (32-34) 08/07/16 12:03 RDW 15.0 % (13.2-15.2) 08/07/16 12:03 Plt Count 253 K/mm3 (140-440) 08/07/16 12:03 Lymph % (Auto) 13.4 % (13.4-35.0) 08/07/16 12:03 [place] % (Auto) 5.2 % (0.0-7.3) 08/07/16 12:03 Eos % (Auto) 0.5 % (0.0-4.3) 08/07/16 12:03 Baso % (Auto) 0.5 % (0.0-1.8) 08/07/16 12:03 Lymph # 1.2 K/mm3 (1.2-5.4) 08/07/16 12:03 [place] # 0.5 K/mm3 (0.0-0.8) 08/07/16 12:03 Eos # 0.0 K/mm3 (0.0-0.4) 08/07/16 12:03 Baso # 0.0 K/mm3 (0.0-0.1) 08/07/16 12:03 Seg Neutrophils % 80.4 % (40.0-70.0) H 08/07/16 12:03 Seg Neutrophils # 7.1 K/mm3 (1.8-7.7) 08/07/16 12:03 PT 13.4 Sec. (12.2-14.9) 08/07/16 12:03 INR 1.03 (0.87-1.13) 08/07/16 12:03 APTT 26.5 Sec. (24.2-36.6) 08/07/16 12:03 VBG pH 7.371 (7.320-7.420) 08/07/16 12:15 Sodium 140 mmol/L (137-145) 08/08/16 20:57 Potassium 3.8 mmol/L (3.6-5.0) 08/08/16 20:57 Chloride 98.7 mmol/L (98-107) 08/08/16 20:57 Carbon Dioxide 24 mmol/L (22-30) 08/08/16 20:57 Anion Gap 21 mmol/L 08/08/16 20:57 BUN 15 mg/dL (9-20) 08/08/16 20:57 Creatinine 1.0 mg/dL (0.8-1.5) 08/08/16 20:57 Estimated GFR > 60 ml/min 08/08/16 20:57 BUN/Creatinine Ratio 15.00 % 08/08/16 20:57 Glucose 134 mg/dL (75-100) H 08/08/16 20:57 POC Glucose 131 (70-105) H 08/09/16 21:25 Lactic Acid 2.20 mmol/L (0.7-2.0) H* 08/07/16 14:25 Calcium 9.2 mg/dL (8.4-10.2) 08/08/16 20:57 Total Bilirubin 0.30 mg/dL (0.1-1.2) 08/07/16 12:03 AST 10 units/L (5-40) 08/07/16 12:03 ALT 11 units/L (7-56) 08/07/16 12:03 Alkaline Phosphatase 51 units/L (35-129) 08/07/16 12:03 Troponin T < 0.010 ng/mL (0.00-0.029) 08/07/16 12:03 Total Protein 6.8 g/dL (6.3-8.2) 08/07/16 12:03 Albumin 3.6 g/dL (3.9-5) L 08/07/16 12:03 Albumin/Globulin Ratio 1.1 % 08/07/16 12:03 Triglycerides 123 mg/dL (2-149) 08/08/16 08:50 Cholesterol 141 mg/dL (50-199) 08/08/16 08:50 LDL Cholesterol Direct 85 mg/dL (50-130) 08/08/16 08:50 HDL Cholesterol 32 mg/dL (40-59) L 08/08/16 08:50 Cholesterol/HDL Ratio 4.40 % 08/08/16 08:50 Urine Color Yellow (Yellow) 08/07/16 12:34 Urine Turbidity Clear (Clear) 08/07/16 12:34 Urine pH 5.0 (5.0-7.0) 08/07/16 12:34 Ur Specific [place] 1.019 (1.003-1.030) 08/07/16 12:34 Urine Protein <15 mg/dl mg/dL (Negative) 08/07/16 12:34 Urine Glucose (UA) Neg mg/dL (Negative) 08/07/16 12:34 Urine Ketones Neg mg/dL (Negative) 08/07/16 12:34 Urine Blood Neg (Negative) 08/07/16 12:34 Urine Nitrite Neg (Negative) 08/07/16 12:34 Urine Bilirubin Neg (Negative) 08/07/16 12:34 Urine Urobilinogen < 2.0 mg/dL (<2.0) 08/07/16 12:34 Ur Leukocyte Esterase Neg (Negative) 08/07/16 12:34 Urine WBC (Auto) < 1.0 /HPF (0.0-6.0) 08/07/16 12:34 Urine RBC (Auto) < 1.0 /HPF (0.0-6.0) 08/07/16 12:34 U Epithel Cells (Auto) < 1.0 /HPF (0-13.0) 08/07/16 12:34 Hyaline Casts 1 /LPF 08/07/16 12:34 Urine Mucus Few /HPF 08/07/16 12:34
[2016-08-10] MEDS: ASPIRIN PO SCH ×2 (10:28→18:01)
[2016-08-10] MEDS: COLCRYS PO SCH (10:28)
[2016-08-10] MEDS: VITAMIN B-1 PO SCH (10:29)
[2016-08-10] MEDS: ZYLOPRIM PO SCH (10:29)
[2016-08-10] MEDS: ZESTRIL PO SCH (10:29)
[2016-08-10] MEDS: NORVASC PO SCH (10:29)
[2016-08-10] MEDS: LOVENOX SUB-Q SCH (11:02)
--- NOTE | 2016-08-10 13:48 | Fluoroscopy Report ---
MODIFIED BARIUM SWALLOW History: Dysphagia. Findings: Fluoroscopy was provided by the radiologist for speech therapy to assess the swallowing mechanism. Please refer to the formal report by speech therapy. Impression: Successful modified barium swallow.
[2016-08-10] MEDS ORDERED: MORPHINE IV PRN (17:42)
--- NOTE | 2016-08-10 19:27 | Event Note ---
Date: 08/11/16 Had family meeting and discussed with daughters and at bedside.
[2016-08-11] MEDS: ATIVAN IV PRN (02:53)
[2016-08-11] MEDS ORDERED: NACL ONE ×2 (08:19→14:11)
--- NOTE | 2016-08-11 08:54 | XRay Report ---
LEFT WRIST RADIOGRAPHS INDICATION: Wrist pain, swelling. COMPARISON: None similar. FINDINGS: AP and lateral left wrist radiographs demonstrate osteoarthritic intercarpal joint space narrowing and degenerative spurring as involving the radial and ulnar styloid processes. Overall articulation intact. Mild positive ulnar variance. Faint calcific densities at the wrist also noted both dorsal and ventral with mild to moderate diffuse overlying soft tissue swelling. Osteopenia/osteoporosis. CONCLUSION: Left wrist moderate osteoarthritic changes and diffuse overlying soft tissue swelling, as described. Please correlate. Thank you for the opportunity to participate in this patient's care.
--- NOTE | 2016-08-11 09:06 | XRay Report ---
LEFT HAND RADIOGRAPHS INDICATION: Hand pain, swelling. COMPARISON: None similar. FINDINGS: AP and lateral left hand radiographs demonstrate osteopenia/osteoporosis. Intact articulation, though osteoarthritic changes with intercarpal narrowing at the wrist seen with degenerative spurring and mild diffuse overlying soft tissue swelling as well. Faint calcific densities also noted both dorsally and ventrally at the wrist on the lateral view. Mild positive ulnar variance. CONCLUSION: No acute left hand bony abnormality, though demineralization noted as also wrist osteoarthritic changes with diffuse overlying soft tissue swelling, as described. Please correlate. Thank you for the opportunity to participate in this patient's care.
[2016-08-11] MEDS: ZYLOPRIM PO SCH (10:00)
[2016-08-11] MEDS: KEPPRA 1,000 MG in D5W 100 ML IV SCH (10:00)
[2016-08-11] MEDS: PEPCID PO SCH ×2 (10:00→22:04)
[2016-08-11] MEDS: NORVASC PO SCH (10:00)
[2016-08-11] MEDS: COLCRYS PO SCH (10:00)
[2016-08-11] MEDS: ZESTRIL PO SCH (10:00)
[2016-08-11] MEDS: LOPRESSOR PO SCH ×2 (10:00→22:04)
[2016-08-11] MEDS: VITAMIN B-1 PO SCH (10:00)
[2016-08-11] MEDS: ASPIRIN PO SCH (10:00)
[2016-08-11] MEDS ORDERED: GEODON IM ONE (10:45)
--- NOTE | 2016-08-11 13:30 | Event Note ---
Date: 08/11/16 I attempted to see this patient between my scheduled coverage time of 8 AM-12 PM but they were not present in the floor room. I will return to staff in consultation 08/12.
--- NOTE | 2016-08-11 13:44 | Magnetic Resonance Report ---
MRA HEAD WITHOUT CONTRAST HISTORY: Stroke. [id number] imaging with MIP reformations of the [place] is submitted. Many of the images are severely limited secondary to motion artifact. The arteries appear widely patent and free of hemodynamically significant stenosis or aneurysm dilatation. Both vertebral arteries are identified appearing patent as well. IMPRESSION: Limited exam. No large vessel occlusion or aneurysm is identified.
--- NOTE | 2016-08-11 13:44 | Magnetic Resonance Report ---
MRI OF THE BRAIN WITHOUT CONTRAST: HISTORY: Stroke PROCEDURE: Multiplanar, multisequence MR imaging of the brain without IV contrast was performed. FINDINGS: No evidence for acute ischemia, mass or hemorrhage. No extra-axial fluid collection. Advanced cortical volume loss and chronic white matter changes are noted. A chronic cortical infarct in the right posterior watershed region measures up to 4 cm. The midline structures are central. The basal cisterns are patent. Normal ventricular size. The orbital cavities and sella turcica demonstrate no abnormality. The visualized paranasal sinuses and mastoid air cells are well aerated. IMPRESSION: No acute intracranial process. Chronic findings as described.
--- NOTE | 2016-08-11 14:48 | Cat Scan Report ---
CT HEAD WITHOUT AND WITH CONTRAST INDICATION: CVA. COMPARISON: MRI from earlier today and 08/07/[address] FINDINGS: Head CT performed before and after IV contrast. 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 No definite acute infarct, hemorrhage, mass effect or midline shift. No abnormal extra axial fluid collections. No focal suspicious abnormal enhancement. Normal posterior fossa with preserved basilar cisterns. Normal eye globes. Mild right maxillary sinus mucosal thickening/approximately 0.7 cm retention cyst medially. Clear remainder imaged paranasal sinuses and mastoid air cells. Atherosclerotic internal carotid artery calcifications. Normal calvarium and scalp. Largely edentulous jaw with few anterior mandibular teeth remaining. 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 Please correlate. Thank you for the opportunity to participate in this patient's care.
[2016-08-11] MEDS: LOVENOX SUB-Q SCH (15:26)
--- NOTE | 2016-08-11 16:19 | Progress Note ---
Assessment and Plan Assessment and plan: Right sided weakness,-imaging studies negative for CVA. Continue on Aspirin. Neurology input pending. on discussion with family, also noted worsening left sided weakness also. Apparently has happened in the past ?Seizure- PER nursing documentation, involuntary movement Encephalopathy. He is confused left wrist cellulitis with superimposed ?gout-start on rocephin Low grade temp- no evidence of sepsis. Dysphagia. Modified Barium swallow done yesterday, start pureed diet Dysarthria. For MRI brain- negative for acute stroke Hypertension. BP stable Lactic academia- possible due to fall. monitor. Diabetes mellitus type 2. Figerstick glucose qac and hs DVT prophylaxis with Lovenox History of stroke With residual left sided hemiplegia. Discussed with daughter in the room History Interval history: Patient seen and examined today, drowsy, per daughter patient normally is able to communicate. Hospitalist Physical - Physical exam Narrative exam: VITAL SIGNS: Reviewed. GENERAL: The patient appeared well nourished and normally developed. Vital signs as documented. HEAD: No signs of head trauma. EYES: Pupils are equal. MOUTH: Oropharynx is normal. NECK: No adenopathy, no JVD. CHEST: Chest with clear breath sounds bilaterally. No wheezes, rales, or rhonchi. CARDIAC: Regular rate and rhythm. S1 and S2, without murmurs, gallops, or rubs. VASCULAR: No Edema. Peripheral pulses normal and equal in all extremities. ABDOMEN: Soft, without detectable tenderness. No sign of distention. No rebound or guarding, and no masses palpated. Bowel Sounds normal. MUSCULOSKELETAL: Good range of motion of all major joints. Extremities without clubbing, cyanosis or edema. NEUROLOGIC EXAM: drowsy and oriented x 1. No focal sensory or strength deficits. not following commands, speech slurred, PSYCHIATRIC: unable to assess SKIN: warmth noted, left wrist, tender to touch, no leasions noted. - Constitutional Vitals: Temp Pulse Resp BP Pulse Ox 99.3 F 88 20 154/82 96 08/11/16 08:45 08/11/16 08:45 08/11/16 08:45 08/11/16 08:45 08/11/16 08:45 General appearance: Present: mild distress Results - Labs CBC & Chem 7: 08/07/16 12:03 08/08/16 20:57 Labs: Laboratory Last Values WBC 8.8 K/mm3 (4.5-11.0) 08/07/16 12:03 RBC 4.10 M/mm3 (3.65-5.03) 08/07/16 12:03 Hgb 12.6 gm/dl (11.8-15.2) 08/07/16 12:03 Hct 38.5 % (35.5-45.6) 08/07/16 12:03 MCV 94 fl (84-94) 08/07/16 12:03 MCH 31 pg (28-32) 08/07/16 12:03 MCHC 33 % (32-34) 08/07/16 12:03 RDW 15.0 % (13.2-15.2) 08/07/16 12:03 Plt Count 253 K/mm3 (140-440) 08/07/16 12:03 Lymph % (Auto) 13.4 % (13.4-35.0) 08/07/16 12:03 [place] % (Auto) 5.2 % (0.0-7.3) 08/07/16 12:03 Eos % (Auto) 0.5 % (0.0-4.3) 08/07/16 12:03 Baso % (Auto) 0.5 % (0.0-1.8) 08/07/16 12:03 Lymph # 1.2 K/mm3 (1.2-5.4) 08/07/16 12:03 [place] # 0.5 K/mm3 (0.0-0.8) 08/07/16 12:03 Eos # 0.0 K/mm3 (0.0-0.4) 08/07/16 12:03 Baso # 0.0 K/mm3 (0.0-0.1) 08/07/16 12:03 Seg Neutrophils % 80.4 % (40.0-70.0) H 08/07/16 12:03 Seg Neutrophils # 7.1 K/mm3 (1.8-7.7) 08/07/16 12:03 PT 13.4 Sec. (12.2-14.9) 08/07/16 12:03 INR 1.03 (0.87-1.13) 08/07/16 12:03 APTT 26.5 Sec. (24.2-36.6) 08/07/16 12:03 VBG pH 7.371 (7.320-7.420) 08/07/16 12:15 Sodium 140 mmol/L (137-145) 08/08/16 20:57 Potassium 3.8 mmol/L (3.6-5.0) 08/08/16 20:57 Chloride 98.7 mmol/L (98-107) 08/08/16 20:57 Carbon Dioxide 24 mmol/L (22-30) 08/08/16 20:57 Anion Gap 21 mmol/L 08/08/16 20:57 BUN 15 mg/dL (9-20) 08/08/16 20:57 Creatinine 1.0 mg/dL (0.8-1.5) 08/08/16 20:57 Estimated GFR > 60 ml/min 08/08/16 20:57 BUN/Creatinine Ratio 15.00 % 08/08/16 20:57 Glucose 134 mg/dL (75-100) H 08/08/16 20:57 POC Glucose 139 (70-105) H 08/11/16 08:45 Lactic Acid 2.20 mmol/L (0.7-2.0) H* 08/07/16 14:25 Calcium 9.2 mg/dL (8.4-10.2) 08/08/16 20:57 Total Bilirubin 0.30 mg/dL (0.1-1.2) 08/07/16 12:03 AST 10 units/L (5-40) 08/07/16 12:03 ALT 11 units/L (7-56) 08/07/16 12:03 Alkaline Phosphatase 51 units/L (35-129) 08/07/16 12:03 Ammonia 31.0 umol/L (25-60) 08/10/16 11:32 Troponin T < 0.010 ng/mL (0.00-0.029) 08/07/16 12:03 Total Protein 6.8 g/dL (6.3-8.2) 08/07/16 12:03 Albumin 3.6 g/dL (3.9-5) L 08/07/16 12:03 Albumin/Globulin Ratio 1.1 % 08/07/16 12:03 Triglycerides 123 mg/dL (2-149) 08/08/16 08:50 Cholesterol 141 mg/dL (50-199) 08/08/16 08:50 LDL Cholesterol Direct 85 mg/dL (50-130) 08/08/16 08:50 HDL Cholesterol 32 mg/dL (40-59) L 08/08/16 08:50 Cholesterol/HDL Ratio 4.40 % 08/08/16 08:50 TSH 1.120 mlU/mL (0.270-4.200) 08/10/16 11:32 Urine Color Yellow (Yellow) 08/07/16 12:34 Urine Turbidity Clear (Clear) 08/07/16 12:34 Urine pH 5.0 (5.0-7.0) 08/07/16 12:34 Ur Specific [place] 1.019 (1.003-1.030) 08/07/16 12:34 Urine Protein <15 mg/dl mg/dL (Negative) 08/07/16 12:34 Urine Glucose (UA) Neg mg/dL (Negative) 08/07/16 12:34 Urine Ketones Neg mg/dL (Negative) 08/07/16 12:34 Urine Blood Neg (Negative) 08/07/16 12:34 Urine Nitrite Neg (Negative) 08/07/16 12:34 Urine Bilirubin Neg (Negative) 08/07/16 12:34 Urine Urobilinogen < 2.0 mg/dL (<2.0) 08/07/16 12:34 Ur Leukocyte Esterase Neg (Negative) 08/07/16 12:34 Urine WBC (Auto) < 1.0 /HPF (0.0-6.0) 08/07/16 12:34 Urine RBC (Auto) < 1.0 /HPF (0.0-6.0) 08/07/16 12:34 U Epithel Cells (Auto) < 1.0 /HPF (0-13.0) 08/07/16 12:34 Hyaline Casts 1 /LPF 08/07/16 12:34 Urine Mucus Few /HPF 08/07/16 12:34
[2016-08-11] MEDS ORDERED: ROCEPHIN/NS 2 GM/100 ML 2 GM/100 ML BAG IV SCH (20:00)
[2016-08-11] MEDS: ZOCOR PO SCH (22:04)
[2016-08-11] MEDS: KEPPRA PO SCH (22:05)
[2016-08-12] MEDS: PEPCID PO SCH ×2 (10:22→22:54)
[2016-08-12] MEDS: VITAMIN B-1 PO SCH (10:22)
[2016-08-12] MEDS: NORVASC PO SCH (10:23)
[2016-08-12] MEDS: ASPIRIN PO SCH (10:23)
[2016-08-12] MEDS: ZESTRIL PO SCH (10:23)
[2016-08-12] MEDS: COLCRYS PO SCH (10:23)
[2016-08-12] MEDS: ZYLOPRIM PO SCH (10:23)
[2016-08-12] MEDS: LOPRESSOR PO SCH ×2 (10:23→22:54)
[2016-08-12] MEDS: KEPPRA PO SCH ×3 (10:24→22:54)
[2016-08-12] MEDS: LOVENOX SUB-Q SCH (10:24)
--- NOTE | 2016-08-12 11:23 | Consultation ---
History of Present Illness Consult date: 08/12/16 Requesting physician: DEVORA FORD Reason for Consult: seizure Chief complaint: difficulty recognizing people History of present illness: 75 YO M Hx R MCA stroke and suspected mild residual L hemiparesis p/w exacerbated baseline sx noted 08/07-. sx were constant. There were no clear aggravating, relieving or temporal factors. Severity such to cause family concern. He had identical spell in April 2016 for which I saw him but MRI Brain/ CTA H/N/TTE all neg. However on this occasion he had witnessed suspected GTC in ED. Past History Past Medical History: COPD, diabetes, heart failure, hypertension, stroke Past Surgical History: No surgical history, Other (reviewed) Social history: , lives with family. denies: smoking, alcohol abuse, prescription drug abuse Family history: diabetes, hypertension Medications and Allergies Allergies Allergy/AdvReac Type Severity Reaction Status Date / Time No Known Allergies Allergy Unverified 05/06/16 19:38 Home Medications Medication Instructions Recorded Confirmed Last Taken Type Allopurinol [Zyloprim] 300 mg PO QDAY 05/07/16 08/07/16 05/06/16 History Aspirin [Aspirin TAB] 325 mg PO QDAY tablet 05/18/16 08/07/16 Unknown Rx Colchicine [Colcrys] 0.6 mg PO QDAY tablet 05/18/16 08/07/16 Unknown Rx Enoxaparin [Lovenox] 40 mg SUB-Q QDAY@1000 syringe 05/18/16 08/07/16 Unknown Rx Famotidine [Pepcid] 10 mg PO BID tablet 05/18/16 08/07/16 Unknown Rx Hydrochlorothiazide [HCTZ] 25 mg PO QDAY tablet 05/18/16 08/07/16 Unknown Rx Lisinopril [Zestril TAB] 10 mg PO QDAY tablet 05/18/16 08/07/16 Unknown Rx Metoprolol [Lopressor TAB] 50 mg PO BID tablet 05/18/16 08/07/16 Unknown Rx Simvastatin [Zocor TAB] 20 mg PO QHS tablet 05/18/16 08/07/16 Unknown Rx Thiamine [Vitamin B-1] 100 mg PO QDAY tablet 05/18/16 08/07/16 Unknown Rx amLODIPine [Norvasc] 2.5 mg PO QDAY tablet 05/18/16 08/07/16 Unknown Rx Active Meds: Active Medications Acetaminophen (Tylenol) 650 mg PO Q4H PRN PRN Reason: Pain, Mild (1-3) Last Admin: 08/10/16 22:08 Dose: 650 mg Allopurinol (Zyloprim) 300 mg PO QDAY [facility] Last Admin: 08/12/16 10:23 Dose: 300 mg Amlodipine Besylate (Norvasc) 5 mg PO QDAY [facility] Last Admin: 08/12/16 10:23 Dose: 5 mg Aspirin (Aspirin) 325 mg PO QDAY [facility] Last Admin: 08/12/16 10:23 Dose: 325 mg Colchicine (Colcrys) 0.6 mg PO QDAY [facility] Last Admin: 08/12/16 10:23 Dose: 0.6 mg Enoxaparin Sodium (Lovenox) 40 mg SUB-Q QDAY@1000 [facility] Last Admin: 08/12/16 10:24 Dose: 40 mg Famotidine (Pepcid) 10 mg PO BID [facility] Last Admin: 08/12/16 10:22 Dose: 10 mg Ceftriaxone Sodium (Rocephin/Ns 2 Gm/100 Ml) 2 gm in 100 mls @ 200 mls/hr IV Q24H [facility] PRN Reason: Protocol Last Admin: 08/11/16 20:55 Dose: 200 mls/hr Levetiracetam (Keppra) 1,000 mg PO BID [facility] Last Admin: 08/12/16 10:24 Dose: 1,000 mg Lisinopril (Zestril) 10 mg PO QDAY [facility] Last Admin: 08/12/16 10:23 Dose: 10 mg Lorazepam (Ativan) 1 mg IV Q4H PRN PRN Reason: Seizures Last Admin: 08/11/16 02:53 Dose: 1 mg Metoprolol Tartrate (Lopressor) 50 mg PO BID [facility] Last Admin: 08/12/16 10:23 Dose: 50 mg Morphine Sulfate (Morphine) 2 mg IV Q4H PRN PRN Reason: Pain, Moderate (4-6) Last Admin: 08/10/16 18:01 Dose: 2 mg Ondansetron HCl (Zofran) 4 mg IV Q8H PRN PRN Reason: N/V unrelieved by Reglan Simvastatin (Zocor) 20 mg PO QHS [facility] Last Admin: 08/11/16 22:04 Dose: 20 mg Sodium Chloride (Sodium Chloride Flush Syringe 10 Ml) 10 ml IV PRN PRN PRN Reason: LINE FLUSH Thiamine HCl (Vitamin B-1) 100 mg PO QDAY [facility] Last Admin: 08/12/16 10:22 Dose: 100 mg Review of Systems ROS unobtainable: due to mental status All systems: negative Constitutional: fatigue, weakness, malaise, lethargy Neurological: weakness (all over), change in speech, confusion, memory loss, gait dysfunction, no numbness, no seizures, no syncope, no convulsions, no sensory deficit Physical Examination - Vital Signs Vital Signs: Vital Signs Temp Pulse Resp BP Pulse Ox 99.5 F 78 24 143/81 94 08/07/16 11:25 08/07/16 11:25 08/07/16 11:25 08/07/16 11:25 08/07/16 11:25 - Constitutional General appearance: comfortable, chronically ill - EENT EENT: Present: ATNC, PERRL, mucous membranes dry, hearing intact, vision intact - Respiratory Respiratory: Present: chest non-tender, normal breath sounds, no respiratory distress - Cardiovascular Cardiovascular: Present: regular rate Extremities: Present: no peripheral edema bilatateraly, no clubbing, cyanosis, no inflammation, no ischemia or petechiae - Gastrointestinal Gastrointestinal: Present: normoactive bowel sounds, soft, non-distended - Integumentary Integumentary: Present: normal - Neurologic Cranial nerve examination: PERRL, EOMI, V1/V2/V3 grossly intact, tongue midline , intact, intact shoulder shrug, intact cough reflex, Intact Vestibulo-ocular r , intact corneal reflex, facial droop (mild on L) Speech examination: intact, other (slowed slurred mildly) Sensorimotor examination: pronator drift (on L), hemiparesis (on L), hemineglect (mild on L) Motor examination - right side: 5/5: biceps, triceps, wrist flexion, wrist extension, underwear hemmer, hip flexors, knee extensors, dorsiflexion, toe extension (EHL) , plantarflexion Motor examination - left side: 4/5: biceps, triceps, wrist flexion, wrist extension, underwear hemmer, hip flexors, knee extensors, dorsiflexion, toe extension (EHL) , plantarflexion Detailed sensory examination: temperature (decr on L) Reflex and gait examination: Babinski's sign (on L) Reflexes: 0: ankle (on L), 3+: bicep, knee, tricep - Musculoskeletal Musculoskeletal: Present: no fluid collection, no pain, normal range of motion - Psychiatric Psychiatric: Present: depressed, cooperative Results - Laboratory Findings CBC and BMP: 08/07/16 12:03 08/08/16 20:57 Abnormal Lab Findings: Abnormal Labs 08/07/16 08/08/16 08/08/16 19:11 08:50 20:57 Glucose 134 H POC Glucose 197 H HDL Cholesterol 32 L 08/09/16 08/10/16 08/10/16 21:25 08:14 11:58 Glucose POC Glucose 131 H 141 H 137 H HDL Cholesterol 08/10/16 08/11/16 08/11/16 21:23 08:45 17:25 Glucose POC Glucose 187 H 139 H 117 H HDL Cholesterol 08/11/16 21:49 Glucose POC Glucose 126 H HDL Cholesterol Assessment and Plan 75 YO M Hx R MCA stroke in past on ASA/statin w/ mild residual dysarthria, L hemiparesis, neglect p/w gradual exacerbated baseline sx identical to spell in April 2016 for which I saw him but MRI Brain/CTA H/N/TTE @ that time were all nonacute. However on this occasion he had witnessed suspected GTC in ED and no recurrence since AED introduced. Pt sis gradually returning to baseline. There is some report of distant prior seizures but no AED on home med list. Repeat MRI Brain & MRA Head 08/11 again neg for acute lesion. he has been found also to have ? COPD exacerbation P aaron and Recommendation: 1. Telemetry bed w/ Q4 hour neuro checks & Sz precautions 2. Labs: Serum/Urine Tox, UA/UCx, Electrolytes especially Na, Ca, Mg, and Glucose, TSH/Vit B12/Ammonia and correct as necessary 3. Cont Infectious work up/medical management for UTI, PNA, cellulitis, bacteremia, etc. 4. Avoid hyponatremia, hypo/hyper-calcemia, hypo/hyperglycemia, acidosis, hypoxia/hypoxemia, hypercarbia/hypercapnia 5. Avoid institution of any psychoactive medications (e.g. antihistamines, anticholinergics, BZD, hypnotics, opiates) as able unless low doses of low potency antipsychotic needed for behavioral issues complicating medical care 6. AED therapy: Continue Keppra 750mg BID 7. Avoid meds that can lower sz threshold e.g. Tramadol, fluroquinolones, carbapenems 8. If Hx obtained to suggest EtOH dependence, supplement Thiamine, Folate and cont CIWA Protocol 9. Pt advised of [place] driving regulations: report date of presumed Seizure/ unexplained loss of consciousness/awareness spell to [facility], refrain from operating a motor vehicle for 6 months after this date, and avoid unsupervised activity particularly around water or heights 10. Neurologically clear for discharge once resolved fully to baseline w/o recurrent seizure for 24 hrs. 11. Follow up as outpt with Neurology
--- NOTE | 2016-08-12 15:37 | Progress Note ---
Assessment and Plan Assessment and plan: Right sided weakness,-is has improved imaging studies negative for CVA. Continue on Aspirin. Neurology input pending. on discussion with family, also noted worsening left sided weakness also. Apparently has happened in the past ?Seizure- PER nursing documentation, involuntary movement-G impetus noted. [place] driving restrictions discussed in detail with the patient. Metabolic encephalopathy likely secondary to seizure. Stable at this point returned to baseline. Still not quite at baseline speech is still mildly slurred. Acute gout left wrist and left knee. We'll add steroids. We'll discontinue antibiotics nervous obsesses at this time no cellulitis. Low grade temp- no evidence of sepsis. Dysphagia. Modified Barium swallow done yesterday, start pureed diet Dysarthria. For MRI brain- negative for acute stroke Hypertension. BP stable Hemiplegia-left side-to previous stroke Lactic academia- possible due to fall. monitor. Diabetes mellitus type 2. Figerstick glucose qac and hs DVT prophylaxis with Lovenox History of stroke With residual left sided hemiplegia. Discussed with daughter in the room Anticipated discharge in a.m. if patient remains stable I strongly recommend the patient goes to a rehabilitation facility due to the following reasons Family members sick at home She requires a high level of care which family is unable to provide at this time. Will discuss with case management History Interval history: Patient seen and examined today, much more awake and gradually returning to baseline. Still with left knee pain and left wrist pain. No fever. Hospitalist Physical - Physical exam Narrative exam: VITAL SIGNS: Reviewed. GENERAL: The patient appeared well nourished and normally developed. Vital signs as documented. HEAD: No signs of head trauma. EYES: Pupils are equal. MOUTH: Oropharynx is normal. NECK: No adenopathy, no JVD. CHEST: Chest with clear breath sounds bilaterally. No wheezes, rales, or rhonchi. CARDIAC: Regular rate and rhythm. S1 and S2, without murmurs, gallops, or rubs. VASCULAR: No Edema. Peripheral pulses normal and equal in all extremities. ABDOMEN: Soft, without detectable tenderness. No sign of distention. No rebound or guarding, and no masses palpated. Bowel Sounds normal. MUSCULOSKELETAL: Range of motion left knee and left upper extremity. Extremities without clubbing, cyanosis or edema. NEUROLOGIC EXAM: drowsy and oriented x 1. No focal sensory deficits but motor strength on left upper extremity is 3 over 5 and 5/5 from the left.. not following commands, speech slurred, PSYCHIATRIC: unable to assess SKIN: warmth noted, left wrist, tender to touch, no leasions noted. - Constitutional Vitals: Temp Pulse Resp BP Pulse Ox 99.4 F 102 H 18 144/95 99 08/12/16 08:00 08/12/16 08:00 08/12/16 08:00 08/12/16 08:00 08/12/16 08:00 General appearance: Present: mild distress Results - Labs CBC & Chem 7: 08/07/16 12:03 08/08/16 20:57 Labs: Laboratory Last Values WBC 8.8 K/mm3 (4.5-11.0) 08/07/16 12:03 RBC 4.10 M/mm3 (3.65-5.03) 08/07/16 12:03 Hgb 12.6 gm/dl (11.8-15.2) 08/07/16 12:03 Hct 38.5 % (35.5-45.6) 08/07/16 12:03 MCV 94 fl (84-94) 08/07/16 12:03 MCH 31 pg (28-32) 08/07/16 12:03 MCHC 33 % (32-34) 08/07/16 12:03 RDW 15.0 % (13.2-15.2) 08/07/16 12:03 Plt Count 253 K/mm3 (140-440) 08/07/16 12:03 Lymph % (Auto) 13.4 % (13.4-35.0) 08/07/16 12:03 [place] % (Auto) 5.2 % (0.0-7.3) 08/07/16 12:03 Eos % (Auto) 0.5 % (0.0-4.3) 08/07/16 12:03 Baso % (Auto) 0.5 % (0.0-1.8) 08/07/16 12:03 Lymph # 1.2 K/mm3 (1.2-5.4) 08/07/16 12:03 [place] # 0.5 K/mm3 (0.0-0.8) 08/07/16 12:03 Eos # 0.0 K/mm3 (0.0-0.4) 08/07/16 12:03 Baso # 0.0 K/mm3 (0.0-0.1) 08/07/16 12:03 Seg Neutrophils % 80.4 % (40.0-70.0) H 08/07/16 12:03 Seg Neutrophils # 7.1 K/mm3 (1.8-7.7) 08/07/16 12:03 PT 13.4 Sec. (12.2-14.9) 08/07/16 12:03 INR 1.03 (0.87-1.13) 08/07/16 12:03 APTT 26.5 Sec. (24.2-36.6) 08/07/16 12:03 VBG pH 7.371 (7.320-7.420) 08/07/16 12:15 Sodium 140 mmol/L (137-145) 08/08/16 20:57 Potassium 3.8 mmol/L (3.6-5.0) 08/08/16 20:57 Chloride 98.7 mmol/L (98-107) 08/08/16 20:57 Carbon Dioxide 24 mmol/L (22-30) 08/08/16 20:57 Anion Gap 21 mmol/L 08/08/16 20:57 BUN 15 mg/dL (9-20) 08/08/16 20:57 Creatinine 1.0 mg/dL (0.8-1.5) 08/08/16 20:57 Estimated GFR > 60 ml/min 08/08/16 20:57 BUN/Creatinine Ratio 15.00 % 08/08/16 20:57 Glucose 134 mg/dL (75-100) H 08/08/16 20:57 POC Glucose 126 (70-105) H 08/11/16 21:49 Lactic Acid 1.00 mmol/L (0.7-2.0) 08/12/16 08:35 Calcium 9.2 mg/dL (8.4-10.2) 08/08/16 20:57 Total Bilirubin 0.30 mg/dL (0.1-1.2) 08/07/16 12:03 AST 10 units/L (5-40) 08/07/16 12:03 ALT 11 units/L (7-56) 08/07/16 12:03 Alkaline Phosphatase 51 units/L (35-129) 08/07/16 12:03 Ammonia 29.0 umol/L (25-60) 08/12/16 08:35 Troponin T < 0.010 ng/mL (0.00-0.029) 08/07/16 12:03 Total Protein 6.8 g/dL (6.3-8.2) 08/07/16 12:03 Albumin 3.6 g/dL (3.9-5) L 08/07/16 12:03 Albumin/Globulin Ratio 1.1 % 08/07/16 12:03 Triglycerides 123 mg/dL (2-149) 08/08/16 08:50 Cholesterol 141 mg/dL (50-199) 08/08/16 08:50 LDL Cholesterol Direct 85 mg/dL (50-130) 08/08/16 08:50 HDL Cholesterol 32 mg/dL (40-59) L 08/08/16 08:50 Cholesterol/HDL Ratio 4.40 % 08/08/16 08:50 TSH 1.120 mlU/mL (0.270-4.200) 08/10/16 11:32 Urine Color Yellow (Yellow) 08/07/16 12:34 Urine Turbidity Clear (Clear) 08/07/16 12:34 Urine pH 5.0 (5.0-7.0) 08/07/16 12:34 Ur Specific [place] 1.019 (1.003-1.030) 08/07/16 12:34 Urine Protein <15 mg/dl mg/dL (Negative) 08/07/16 12:34 Urine Glucose (UA) Neg mg/dL (Negative) 08/07/16 12:34 Urine Ketones Neg mg/dL (Negative) 08/07/16 12:34 Urine Blood Neg (Negative) 08/07/16 12:34 Urine Nitrite Neg (Negative) 08/07/16 12:34 Urine Bilirubin Neg (Negative) 08/07/16 12:34 Urine Urobilinogen < 2.0 mg/dL (<2.0) 08/07/16 12:34 Ur Leukocyte Esterase Neg (Negative) 08/07/16 12:34 Urine WBC (Auto) < 1.0 /HPF (0.0-6.0) 08/07/16 12:34 Urine RBC (Auto) < 1.0 /HPF (0.0-6.0) 08/07/16 12:34 U Epithel Cells (Auto) < 1.0 /HPF (0-13.0) 08/07/16 12:34 Hyaline Casts 1 /LPF 08/07/16 12:34 Urine Mucus Few /HPF 08/07/16 12:34
[2016-08-12] MEDS ORDERED: NACL ONE (17:58)
--- NOTE | 2016-08-12 19:38 | Cat Scan Report ---
FINAL REPORT PROCEDURE: CT ABDOMEN W CON TECHNIQUE: Computerized axial tomography of the abdomen was performed following the IV injection of iodinated nonionic contrast. HISTORY: abdominal pain, luq COMPARISON: No prior studies are available for comparison. FINDINGS: Exam limited by motion artifact Visualized lower thorax: Motion artifact. Unfused rib fractures right lower chest involving the right 8th ribs posteriorly and several anterior laterally.. Possible fractures left lateral ribs blurred by motion artifact. Can't exclude fracture of the left lateral 8th rib and others. Liver: Diffuse fatty infiltration of liver. Spleen: Normal size and attenuation. Gallbladder and biliary system: Moderately distended gallbladder. Pancreas: Mild atrophy. Adrenals: Adreniform enlargement of the adrenal glands with ovoid nodular mass on the left measuring 1 x 2 centimeters. Kidneys: Normal. GI tract: Diffuse stool content contrast in portions of large bowel cecum ascending colon. Normal caliber appendix.. Scattered large bowel diverticulosis. Motion artifact. Underlying acute or malignant bowel pathology not excludable due to the motion and streak artifacts and due to the lack of contrast in the entirety of the GI tract. Minimal acute diverticulitis left upper quadrant excludable. Lymph nodes and mesentery: Normal. Vasculature: Atherosclerotic disease with arterial vasculopathy. Peritoneum: No free fluid. Musculoskeletal structures: No significant abnormality. Other: Severe degenerative changes lumbar spine. Severe endplate degenerative changes with endplate sclerosis and rarefaction at the vertebral body levels at the L4-5 level. Underlying discitis not excludable. Patchy osteoporotic appearing L3. Mixed patchy sclerotic and multi radiolucent appearing L2. Metastatic disease or infectious etiologies not excludable. Patchy appearance of the lower aspect of L1.. Followup MRI advised. IMPRESSION: Examination is significantly limited by motion and streak artifact Diffuse constipation. Cannot exclude minimal focal diverticulitis left upper quadrant Can't exclude acute rib fractures left lower chest due to motion Cannot exclude L4-5 discitis. Cannot exclude metastatic disease including but not limited to L1 and 2 vertebral body. Followup and further workup advised. Consider MRI lumbar spine. Other details above. Followup advised as warranted
[2016-08-12] MEDS: ZOCOR PO SCH (22:55)
[2016-08-13] MEDS: ATIVAN IV PRN (07:15)
[2016-08-13] MEDS: COLCRYS PO SCH (11:10)
[2016-08-13] MEDS: ZYLOPRIM PO SCH (11:10)
[2016-08-13] MEDS: ASPIRIN PO SCH (11:10)
[2016-08-13] MEDS: NORVASC PO SCH (11:10)
[2016-08-13] MEDS: PEPCID PO SCH ×2 (11:11→21:06)
[2016-08-13] MEDS: LOPRESSOR PO SCH ×2 (11:11→21:06)
[2016-08-13] MEDS: ZESTRIL PO SCH (11:11)
[2016-08-13] MEDS: VITAMIN B-1 PO SCH (11:11)
[2016-08-13] MEDS: LOVENOX SUB-Q SCH (11:12)
[2016-08-13] MEDS: KEPPRA PO SCH ×2 (11:12→21:04)
--- NOTE | 2016-08-13 12:22 | Progress Note ---
Assessment and Plan Assessment and plan: Patient is a 75M with a h/o HTN, CVA with LHP and Dysarthria, DM, COPD, Asthma, Gout, Chronic Respiratory Failure presents to ED for SOB and weakness. Pt unable to provide history. Pt family report patient found to have weakness and difficulty breathing over the past 3 days. 08/11/2016 MRI of the brain without contrast reported as no acute intracranial process, chronic findings a chronic cortical infarct in the right posterior watershed region measuring up to 4 cm. MRA of her head without contrast was a limited exam, no large vessel occlusion or aneurysm. 08/10/2016 2-D echocardiogram reported as normal left ventricular systolic function, estimated EF is 6065 percent, mild concentric left ventricular hypertrophy, right ventricular mildly dilated right ventricular global systolic function is moderately reduced, right atrium is mildly dilated, and a limited study- no doppler valve assessment, clinical correlation-further evaluation of acute R heart strain-consider PE (no RVSP reported) by Dr. Perez. -Functional quadriplegia, poa: Treat with PT/OT -Acute Metabolic Encephalopathy, poa -Late effects of CVA: Modify his diet to pured -Right sided weakness,-is has improved imaging studies negative for CVA. Continue on Aspirin. Neurology input pending. on discussion with family, also noted worsening left sided weakness also. Apparently has happened in the past -?Seizure- PER nursing documentation, involuntary movement, no further sz reported. [place] driving restrictions discussed in detail with the patient: Neurology evaluation pending -Acute gout left wrist and left knee. We'll add steroids. We'll discontinue antibiotics nervous obsesses at this time no cellulitis. -Low grade temp- no evidence of sepsis, resolved -Dysphagia. Modified Barium swallow done yesterday, started on pureed diet -Diabetes mellitus type 2. Figerstick glucose qac and hs -DVT prophylaxis with Lovenox -Issues with the disposition: Patient is from [facility] but he ran out of days, patient used 20 days,that patient did not meet the 60 day rest period,would need to apply for medicaid application: notified CM. Family members sick at home; therefore, nobody to take care of him at home He requires a high level of care which family is unable to provide at this time. Will discuss with case management Patient ready for discharge History Interval history: Patient seen and examined. Follow up on SOB. Overnight uneventful. No cp, n/v or severe headaches. Imaging, old records, testing, labs, nursing notes reviewed. Hospitalist Physical - Physical exam Narrative exam: GEN: Cachectic, chronically disabled NAD, AWAKE, ALERT, confused and nonverbal CVS: RRR, NORMAL S1S2 LUNGS/CHEST: CTA B, NORMAL CHEST EXPANSION B, GOOD AIR ENTRY B ABD: SOFT, NTND, GBS, NO REBOUND OR GUARDING EXT/SKIN: Atrophic legs MSK: Legs contracted NEURO: CN 2-12 GROSSLY INTACT, doesn't follow commands PSY: CALM but confused - Constitutional Vitals: Temp Pulse Resp BP Pulse Ox 99.3 F 88 16 160/80 95 08/13/16 08:00 08/13/16 11:10 08/13/16 08:00 08/13/16 11:10 08/13/16 08:00 General appearance: Absent: mild distress Results - Labs CBC & Chem 7: 08/07/16 12:03 08/08/16 20:57 Labs: Laboratory Last Values WBC 8.8 K/mm3 (4.5-11.0) 08/07/16 12:03 RBC 4.10 M/mm3 (3.65-5.03) 08/07/16 12:03 Hgb 12.6 gm/dl (11.8-15.2) 08/07/16 12:03 Hct 38.5 % (35.5-45.6) 08/07/16 12:03 MCV 94 fl (84-94) 08/07/16 12:03 MCH 31 pg (28-32) 08/07/16 12:03 MCHC 33 % (32-34) 08/07/16 12:03 RDW 15.0 % (13.2-15.2) 08/07/16 12:03 Plt Count 253 K/mm3 (140-440) 08/07/16 12:03 Lymph % (Auto) 13.4 % (13.4-35.0) 08/07/16 12:03 [place] % (Auto) 5.2 % (0.0-7.3) 08/07/16 12:03 Eos % (Auto) 0.5 % (0.0-4.3) 08/07/16 12:03 Baso % (Auto) 0.5 % (0.0-1.8) 08/07/16 12:03 Lymph # 1.2 K/mm3 (1.2-5.4) 08/07/16 12:03 [place] # 0.5 K/mm3 (0.0-0.8) 08/07/16 12:03 Eos # 0.0 K/mm3 (0.0-0.4) 08/07/16 12:03 Baso # 0.0 K/mm3 (0.0-0.1) 08/07/16 12:03 Seg Neutrophils % 80.4 % (40.0-70.0) H 08/07/16 12:03 Seg Neutrophils # 7.1 K/mm3 (1.8-7.7) 08/07/16 12:03 PT 13.4 Sec. (12.2-14.9) 08/07/16 12:03 INR 1.03 (0.87-1.13) 08/07/16 12:03 APTT 26.5 Sec. (24.2-36.6) 08/07/16 12:03 VBG pH 7.371 (7.320-7.420) 08/07/16 12:15 Sodium 140 mmol/L (137-145) 08/08/16 20:57 Potassium 3.8 mmol/L (3.6-5.0) 08/08/16 20:57 Chloride 98.7 mmol/L (98-107) 08/08/16 20:57 Carbon Dioxide 24 mmol/L (22-30) 08/08/16 20:57 Anion Gap 21 mmol/L 08/08/16 20:57 BUN 15 mg/dL (9-20) 08/08/16 20:57 Creatinine 1.0 mg/dL (0.8-1.5) 08/08/16 20:57 Estimated GFR > 60 ml/min 08/08/16 20:57 BUN/Creatinine Ratio 15.00 % 08/08/16 20:57 Glucose 134 mg/dL (75-100) H 08/08/16 20:57 POC Glucose 206 (70-105) H 08/13/16 06:03 Lactic Acid 1.00 mmol/L (0.7-2.0) 08/12/16 08:35 Calcium 9.2 mg/dL (8.4-10.2) 08/08/16 20:57 Total Bilirubin 0.30 mg/dL (0.1-1.2) 08/07/16 12:03 AST 10 units/L (5-40) 08/07/16 12:03 ALT 11 units/L (7-56) 08/07/16 12:03 Alkaline Phosphatase 51 units/L (35-129) 08/07/16 12:03 Ammonia 29.0 umol/L (25-60) 08/12/16 08:35 Troponin T < 0.010 ng/mL (0.00-0.029) 08/07/16 12:03 Total Protein 6.8 g/dL (6.3-8.2) 08/07/16 12:03 Albumin 3.6 g/dL (3.9-5) L 08/07/16 12:03 Albumin/Globulin Ratio 1.1 % 08/07/16 12:03 Triglycerides 123 mg/dL (2-149) 08/08/16 08:50 Cholesterol 141 mg/dL (50-199) 08/08/16 08:50 LDL Cholesterol Direct 85 mg/dL (50-130) 08/08/16 08:50 HDL Cholesterol 32 mg/dL (40-59) L 08/08/16 08:50 Cholesterol/HDL Ratio 4.40 % 08/08/16 08:50 TSH 1.120 mlU/mL (0.270-4.200) 08/10/16 11:32 Urine Color Yellow (Yellow) 08/07/16 12:34 Urine Turbidity Clear (Clear) 08/07/16 12:34 Urine pH 5.0 (5.0-7.0) 08/07/16 12:34 Ur Specific [place] 1.019 (1.003-1.030) 08/07/16 12:34 Urine Protein <15 mg/dl mg/dL (Negative) 08/07/16 12:34 Urine Glucose (UA) Neg mg/dL (Negative) 08/07/16 12:34 Urine Ketones Neg mg/dL (Negative) 08/07/16 12:34 Urine Blood Neg (Negative) 08/07/16 12:34 Urine Nitrite Neg (Negative) 08/07/16 12:34 Urine Bilirubin Neg (Negative) 08/07/16 12:34 Urine Urobilinogen < 2.0 mg/dL (<2.0) 08/07/16 12:34 Ur Leukocyte Esterase Neg (Negative) 08/07/16 12:34 Urine WBC (Auto) < 1.0 /HPF (0.0-6.0) 08/07/16 12:34 Urine RBC (Auto) < 1.0 /HPF (0.0-6.0) 08/07/16 12:34 U Epithel Cells (Auto) < 1.0 /HPF (0-13.0) 08/07/16 12:34 Hyaline Casts 1 /LPF 08/07/16 12:34 Urine Mucus Few /HPF 08/07/16 12:34
[2016-08-13 15:50] LABS: Anion Gap 18 mmol/L; Blood Urea Nitrogen 26 mg/dL (9-20); Calcium 9.5 mg/dL (8.4-10.2); Carbon Dioxide 25 mmol/L (22-30); Chloride 99.5 mmol/L (98-107); Glucose 249 mg/dL (75-100); Sodium 138 mmol/L (137-145)
[2016-08-13] MEDS ORDERED: NACL ONE ×2 (16:50→17:19)
--- NOTE | 2016-08-13 17:51 | Cat Scan Report ---
FINAL REPORT PROCEDURE: CT ANGIO CHEST TECHNIQUE: Computerized tomographic angiography of the chest was performed during the IV injection of iodinated nonionic contrast including image processing. The image data was postprocessed using 2-dimensional multiplanar reformatted (MPR) and 3-dimensional (MIP and/or volume rendered) techniques. HISTORY: SOB COMPARISON: No prior studies are available for comparison. FINDINGS: Pulmonary outflow tract, right and left main pulmonary arteries and their proximal branches: The pulmonary outflow tract right and left main pulmonary arteries are clear. There are however filling defects visualized in the right lower lobe pulmonary artery and branches extending inferior medially. There is also filling defect in 1 of the branches of the left lower lobe pulmonary artery. The the filling defects are consistent with pulmonary emboli. Pericardium: No evidence of pericardial effusion. Thoracic aorta: There is borderline aneurysmal dilatation of the ascending thoracic aorta measuring 4 centimeters by 3.9 centimeters. No dissection visualized. Coronary arteries: Are partially calcified indicating atherosclerotic disease. Mediastinum and hilar regions: Nonspecific subcentimeter lymph nodes are visualized. No pathologically enlarged lymph nodes or masses are identified. Lung [place]: Small amount of atelectasis appears to be present bilaterally. No dense consolidations or effusions are identified. Upper abdomen: No acute or focal abnormality is seen. Other: There is an old healed fracture through the anterior lateral aspect of the right 6th rib and right 7th rib as well as the right 8th rib. Old fractures of the right 7th and 8th ribs posteriorly are visualize with nonunion. IMPRESSION: Bilateral lower lobe pulmonary artery emboli are present. Borderline aneurysmal dilatation ascending thoracic aorta. Atherosclerosis coronary arteries. Old right rib fractures as described above.
[2016-08-13] MEDS ORDERED: NACL 0.9% 500 ML 500 ML IV ONE (18:01)
--- NOTE | 2016-08-13 19:10 | Consultation ---
History of Present Illness - Reason for Consult Consult date: 08/13/16 ascending aortic aneurysm Requesting physician: ALEIDA SURESH - History of Present Illness 75-year-old male admitted to the hospital with respiratory insufficiency, he has been managed and had CT scan completed today which revealed bilateral pulmonary emboli with an aneurysm of the ascending aorta. 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 Past History Past Medical History: COPD, diabetes, heart failure, hypertension, stroke Past Surgical History: No surgical history, Other (reviewed) Social history: , lives with family. denies: smoking, alcohol abuse, prescription drug abuse Family history: diabetes, hypertension Medications and Allergies Allergies Allergy/AdvReac Type Severity Reaction Status Date / Time No Known Allergies Allergy Unverified 05/06/16 19:38 Home Medications Medication Instructions Recorded Confirmed Last Taken Type Allopurinol [Zyloprim] 300 mg PO QDAY 05/07/16 08/07/16 05/06/16 History Aspirin [Aspirin TAB] 325 mg PO QDAY tablet 05/18/16 08/07/16 Unknown Rx Colchicine [Colcrys] 0.6 mg PO QDAY tablet 05/18/16 08/07/16 Unknown Rx Enoxaparin [Lovenox] 40 mg SUB-Q QDAY@1000 syringe 05/18/16 08/07/16 Unknown Rx Famotidine [Pepcid] 10 mg PO BID tablet 05/18/16 08/07/16 Unknown Rx Hydrochlorothiazide [HCTZ] 25 mg PO QDAY tablet 05/18/16 08/07/16 Unknown Rx Lisinopril [Zestril TAB] 10 mg PO QDAY tablet 05/18/16 08/07/16 Unknown Rx Metoprolol [Lopressor TAB] 50 mg PO BID tablet 05/18/16 08/07/16 Unknown Rx Simvastatin [Zocor TAB] 20 mg PO QHS tablet 05/18/16 08/07/16 Unknown Rx Thiamine [Vitamin B-1] 100 mg PO QDAY tablet 05/18/16 08/07/16 Unknown Rx amLODIPine [Norvasc] 2.5 mg PO QDAY tablet 05/18/16 08/07/16 Unknown Rx Active Meds: Active Medications Acetaminophen (Tylenol) 650 mg PO Q4H PRN PRN Reason: Pain, Mild (1-3) Last Admin: 08/10/16 22:08 Dose: 650 mg Allopurinol (Zyloprim) 300 mg PO QDAY [facility] Last Admin: 08/13/16 11:10 Dose: 300 mg Amlodipine Besylate (Norvasc) 5 mg PO QDAY [facility] Last Admin: 08/13/16 11:10 Dose: 5 mg Aspirin (Aspirin) 325 mg PO QDAY [facility] Last Admin: 08/13/16 11:10 Dose: 325 mg Colchicine (Colcrys) 0.6 mg PO QDAY [facility] Last Admin: 08/13/16 11:10 Dose: 0.6 mg Famotidine (Pepcid) 10 mg PO BID [facility] Last Admin: 08/13/16 11:11 Dose: 10 mg Heparin Sodium/Sodium Chloride (Heparin/ 0.45% Nacl-25,000 Unit/500 Ml) 25,000 unit in 500 mls @ 24 mls/hr IV TITR [facility]; 1,200 UNITS/HR PRN Reason: Protocol Levetiracetam (Keppra) 750 mg PO BID [facility] Last Admin: 08/13/16 11:12 Dose: 750 mg Lisinopril (Zestril) 10 mg PO QDAY [facility] Last Admin: 08/13/16 11:11 Dose: 10 mg Lorazepam (Ativan) 1 mg IV Q4H PRN PRN Reason: Seizures Last Admin: 08/13/16 07:15 Dose: 1 mg Metoprolol Tartrate (Lopressor) 50 mg PO BID [facility] Last Admin: 08/13/16 11:11 Dose: 50 mg Morphine Sulfate (Morphine) 2 mg IV Q4H PRN PRN Reason: Pain, Moderate (4-6) Last Admin: 08/10/16 18:01 Dose: 2 mg Ondansetron HCl (Zofran) 4 mg IV Q8H PRN PRN Reason: N/V unrelieved by Reglan Simvastatin (Zocor) 20 mg PO QHS [facility] Last Admin: 08/12/16 22:55 Dose: 20 mg Sodium Chloride (Sodium Chloride Flush Syringe 10 Ml) 10 ml IV PRN PRN PRN Reason: LINE FLUSH Thiamine HCl (Vitamin B-1) 100 mg PO QDAY [facility] Last Admin: 08/13/16 11:11 Dose: 100 mg Exam - Constitutional Vitals: Temp Pulse Resp BP Pulse Ox 99.1 F 90 18 142/70 95 08/13/16 17:00 08/13/16 17:00 08/13/16 17:00 08/13/16 17:00 08/13/16 08:00 General appearance: Present: mild distress - EENT Eyes: Present: PERRL - Neck Neck: Absent: masses or JVD - Respiratory Respiratory effort: labored Respiratory: bilateral: diminished - Cardiovascular Rhythm: regular Results - Labs CBC & Chem 7: 08/07/16 12:03 08/13/16 15:08 Labs: Abnormal lab results 08/12/16 08/12/16 08/12/16 Range/Units 09:12 13:39 21:32 D-Dimer (0-234) ng/mlDDU BUN (9-20) mg/dL Glucose (75-100) mg/dL POC Glucose 180 H 170 H 202 H (70-105) 08/13/16 08/13/16 08/13/16 Range/Units 06:03 12:18 13:26 D-Dimer 718.59 H (0-234) ng/mlDDU BUN (9-20) mg/dL Glucose (75-100) mg/dL POC Glucose 206 H 223 H (70-105) 08/13/16 08/13/16 Range/Units 15:08 16:40 D-Dimer (0-234) ng/mlDDU BUN 26 H (9-20) mg/dL Glucose 249 H (75-100) mg/dL POC Glucose 231 H (70-105) Assessment and Plan 1. The CT scan reveals the ascending aorta to be 3.5 cm in diameter, there is no evidence of mural thrombus or associated dissection. I do not recommend acute vascular surgery intervention. I do recommend the patient be followed by cardiothoracic surgery. 2. Bilateral pulmonary emboli, there is no evidence of emboli in the main pulmonary vein nor the first or second order branches. There is no indication for catheter directed thrombolyzes. The patient has multiple comorbid medical problems, I do not recommend systemic thrombolyzes. Consider lower extremity venous Dopplers to assess for DVT and anticoagulation if there is no contraindication. - Patient Problems (1) Ascending aorta dilation Current Visit: Yes Status: Acute (2) Pulmonary embolism Current Visit: Yes Status: Acute Qualifiers: Pulmonary embolism type: P Chronicity: C Acute cor pulmonale presence: A
[2016-08-13] MEDS ORDERED: NACL 0.9% 500 ML 500 ML ONE (20:41)
[2016-08-13] MEDS: ZOCOR PO SCH (21:06)
[2016-08-13] MEDS ORDERED: LOVENOX SUB-Q SCH (22:00)
[2016-08-13 22:08] LABS: Hematocrit 39.2 % (35.5-45.6); Hemoglobin 12.6 gm/dl (11.8-15.2)
[2016-08-13 22:35] LABS: INR 1.16 (0.87-1.13)
[2016-08-13 22:36] LABS: Partial Thromboplastin Time 34.6 Sec. (24.2-36.6)
[2016-08-13] MEDS: HEPARIN/ 0.45% NACL-25,000 UNIT/500 ML 25,000 UNIT/500 ML BAG IV SCH (22:37)
[2016-08-14 05:51] LABS: Hematocrit 36.9 % (35.5-45.6); Mean Corpuscular HGB Conc 33 % (32-34); Mean Corpuscular Hemoglobin 31 pg (28-32); Mean Corpuscular Volume 94 fl (84-94); Platelet Count 310 K/mm3 (140-440); Red Blood Count 3.93 M/mm3 (3.65-5.03); Red Cell Distribution Width 15.4 % (13.2-15.2); White Blood Count 14.1 K/mm3 (4.5-11.0)
[2016-08-14 06:12] LABS: Anion Gap 17 mmol/L; BUN/Creatinine Ratio 23.33; Blood Urea Nitrogen 28 mg/dL (9-20); Calcium 9.1 mg/dL (8.4-10.2); Carbon Dioxide 24 mmol/L (22-30); Chloride 103.4 mmol/L (98-107); Glucose 173 mg/dL (75-100); Potassium 3.8 mmol/L (3.6-5.0); Sodium 141 mmol/L (137-145)
[2016-08-14] MEDS: NORVASC PO SCH (10:53)
[2016-08-14] MEDS: ZYLOPRIM PO SCH (10:53)
[2016-08-14] MEDS: PEPCID PO SCH (10:53)
[2016-08-14] MEDS: ASPIRIN PO SCH (10:53)
[2016-08-14] MEDS: COLCRYS PO SCH (10:53)
[2016-08-14] MEDS: LOPRESSOR PO SCH (10:53)
[2016-08-14] MEDS: VITAMIN B-1 PO SCH (10:53)
[2016-08-14] MEDS: ZESTRIL PO SCH (10:53)
[2016-08-14] MEDS: KEPPRA PO SCH (10:54)
--- NOTE | 2016-08-14 15:13 | Vascular Lab Report ---
LOWER EXTREMITY VENOUS DUPLEX: REASON FOR EXAM: Pain and swelling of the lower extremities. COMMENTS ON THE RIGHT: All veins visualized are freely compressible without evidence of internal echogenicity. Flow is spontaneous and phasic throughout. COMMENTS ON THE LEFT: All veins visualized are freely compressible without evidence of internal echogenicity. Flow is spontaneous and phasic throughout. The soft tissue changes may be consistent with knee effusion IMPRESSION: No evidence of acute or chronic deep venous thrombosis in either lower extremity.
[2016-08-14] MEDS ORDERED: COUMADIN PO SCH (17:00)
--- NOTE | 2016-08-14 17:46 | Progress Note ---
Assessment and Plan Assessment and plan: Patient is a 75M with a h/o HTN, CVA with LHP and Dysarthria, DM, COPD, Asthma, Gout, Chronic Respiratory Failure presents to ED for SOB and weakness. Pt unable to provide history. Pt family report patient found to have weakness and difficulty breathing over the past 3 days. 08/11/2016 MRI of the brain without contrast reported as no acute intracranial process, chronic findings a chronic cortical infarct in the right posterior watershed region measuring up to 4 cm. MRA of her head without contrast was a limited exam, no large vessel occlusion or aneurysm. 08/10/2016 2-D echocardiogram reported as normal left ventricular systolic function, estimated EF is 6065 percent, mild concentric left ventricular hypertrophy, right ventricular mildly dilated right ventricular global systolic function is moderately reduced, right atrium is mildly dilated, and a limited study- no doppler valve assessment, clinical correlation-further evaluation of acute R heart strain-consider PE (no RVSP reported) by Dr. Perez. -Functional quadriplegia, poa: Treat with PT/OT -Acute Metabolic Encephalopathy, poa -Late effects of CVA: Modify his diet to pured -Right sided weakness,-is has improved imaging studies negative for CVA. Continue on Aspirin. Neurology input pending. on discussion with family, also noted worsening left sided weakness also. Apparently has happened in the past -?Seizure- PER nursing documentation, involuntary movement, no further sz reported. [place] driving restrictions discussed in detail with the patient: Neurology evaluation pending -Acute gout left wrist and left knee. We'll add steroids. We'll discontinue antibiotics nervous obsesses at this time no cellulitis. -Low grade temp- no evidence of sepsis, resolved -Dysphagia. Modified Barium swallow done yesterday, started on pureed diet -Diabetes mellitus type 2. Figerstick glucose qac and hs -DVT prophylaxis with Lovenox -Issues with the disposition: Patient is from [facility] but he ran out of days, patient used 20 days,that patient did not meet the 60 day rest period,would need to apply for medicaid application: notified CM. Since Dr. Ana WILKINS said "consider PE", I ordered d-dimer which was high then I had to order BMP for renal function prior to getting CTA chest with showed PE also aneurysm but no dissection per report. Consulted Vascular surgery for the aneursym, start heparin drip for PE. start warfarin tomorrow or newer anticoagulant. Give 500ml nss bolus x 1 for renal protection post CTA with contrast expected bp to transiently increase. I d/w daughter [facility] prior to CTA chest. Gretchen the insurance case manager also spoke with her===>positive for PE, other findings which i consulted and spoke with Vascular. Started heparin drip, Start warfarin. History Interval history: Patient seen and examined. Follow up on SOB. Overnight uneventful. No cp, n/v or severe headaches. Imaging, old records, testing, labs, nursing notes reviewed. Hospitalist Physical - Physical exam Narrative exam: GEN: Cachectic, chronically disabled NAD, AWAKE, ALERT, confused and nonverbal CVS: RRR, NORMAL S1S2 LUNGS/CHEST: CTA B, NORMAL CHEST EXPANSION B, GOOD AIR ENTRY B ABD: SOFT, NTND, GBS, NO REBOUND OR GUARDING EXT/SKIN: Atrophic legs MSK: Legs contracted NEURO: CN 2-12 GROSSLY INTACT, doesn't follow commands PSY: CALM but confused - Constitutional Vitals: Temp Pulse Resp BP Pulse Ox 98.3 F 72 16 130/60 97 08/14/16 08:00 08/14/16 10:53 08/14/16 08:00 08/14/16 10:53 08/14/16 08:00 Results - Labs CBC & Chem 7: 08/14/16 05:34 08/14/16 05:34 Labs: Laboratory Last Values WBC 14.1 K/mm3 (4.5-11.0) H 08/14/16 05:34 RBC 3.93 M/mm3 (3.65-5.03) 08/14/16 05:34 Hgb 12.0 gm/dl (11.8-15.2) 08/14/16 05:34 Hct 36.9 % (35.5-45.6) 08/14/16 05:34 MCV 94 fl (84-94) 08/14/16 05:34 MCH 31 pg (28-32) 08/14/16 05:34 MCHC 33 % (32-34) 08/14/16 05:34 RDW 15.4 % (13.2-15.2) H 08/14/16 05:34 Plt Count 310 K/mm3 (140-440) 08/14/16 05:34 Lymph % (Auto) 13.4 % (13.4-35.0) 08/07/16 12:03 [place] % (Auto) 5.2 % (0.0-7.3) 08/07/16 12:03 Eos % (Auto) 0.5 % (0.0-4.3) 08/07/16 12:03 Baso % (Auto) 0.5 % (0.0-1.8) 08/07/16 12:03 Lymph # 1.2 K/mm3 (1.2-5.4) 08/07/16 12:03 [place] # 0.5 K/mm3 (0.0-0.8) 08/07/16 12:03 Eos # 0.0 K/mm3 (0.0-0.4) 08/07/16 12:03 Baso # 0.0 K/mm3 (0.0-0.1) 08/07/16 12:03 Seg Neutrophils % 80.4 % (40.0-70.0) H 08/07/16 12:03 Seg Neutrophils # 7.1 K/mm3 (1.8-7.7) 08/07/16 12:03 PT 14.7 Sec. (12.2-14.9) 08/13/16 21:43 INR 1.16 (0.87-1.13) H 08/13/16 21:43 APTT 34.6 Sec. (24.2-36.6) 08/13/16 21:43 D-Dimer 718.59 ng/mlDDU (0-234) H 08/13/16 13:26 Heparin Anti-Xa Level 0.49 U.I./ml (0.3-0.7) 08/14/16 05:34 VBG pH 7.371 (7.320-7.420) 08/07/16 12:15 Sodium 141 mmol/L (137-145) 08/14/16 05:34 Potassium 3.8 mmol/L (3.6-5.0) 08/14/16 05:34 Chloride 103.4 mmol/L (98-107) 08/14/16 05:34 Carbon Dioxide 24 mmol/L (22-30) 08/14/16 05:34 Anion Gap 17 mmol/L 08/14/16 05:34 BUN 28 mg/dL (9-20) H 08/14/16 05:34 Creatinine 1.2 mg/dL (0.8-1.5) 08/14/16 05:34 Estimated GFR > 60 ml/min 08/14/16 05:34 BUN/Creatinine Ratio 23.33 % 08/14/16 05:34 Glucose 173 mg/dL (75-100) H 08/14/16 05:34 POC Glucose 136 (70-105) H 08/14/16 16:57 Lactic Acid 1.00 mmol/L (0.7-2.0) 08/12/16 08:35 Calcium 9.1 mg/dL (8.4-10.2) 08/14/16 05:34 Total Bilirubin 0.30 mg/dL (0.1-1.2) 08/07/16 12:03 AST 10 units/L (5-40) 08/07/16 12:03 ALT 11 units/L (7-56) 08/07/16 12:03 Alkaline Phosphatase 51 units/L (35-129) 08/07/16 12:03 Ammonia 29.0 umol/L (25-60) 08/12/16 08:35 Troponin T < 0.010 ng/mL (0.00-0.029) 08/07/16 12:03 Total Protein 6.8 g/dL (6.3-8.2) 08/07/16 12:03 Albumin 3.6 g/dL (3.9-5) L 08/07/16 12:03 Albumin/Globulin Ratio 1.1 % 08/07/16 12:03 Triglycerides 123 mg/dL (2-149) 08/08/16 08:50 Cholesterol 141 mg/dL (50-199) 08/08/16 08:50 LDL Cholesterol Direct 85 mg/dL (50-130) 08/08/16 08:50 HDL Cholesterol 32 mg/dL (40-59) L 08/08/16 08:50 Cholesterol/HDL Ratio 4.40 % 08/08/16 08:50 TSH 1.120 mlU/mL (0.270-4.200) 08/10/16 11:32 Urine Color Yellow (Yellow) 08/07/16 12:34 Urine Turbidity Clear (Clear) 08/07/16 12:34 Urine pH 5.0 (5.0-7.0) 08/07/16 12:34 Ur Specific [place] 1.019 (1.003-1.030) 08/07/16 12:34 Urine Protein <15 mg/dl mg/dL (Negative) 08/07/16 12:34 Urine Glucose (UA) Neg mg/dL (Negative) 08/07/16 12:34 Urine Ketones Neg mg/dL (Negative) 08/07/16 12:34 Urine Blood Neg (Negative) 08/07/16 12:34 Urine Nitrite Neg (Negative) 08/07/16 12:34 Urine Bilirubin Neg (Negative) 08/07/16 12:34 Urine Urobilinogen < 2.0 mg/dL (<2.0) 08/07/16 12:34 Ur Leukocyte Esterase Neg (Negative) 08/07/16 12:34 Urine WBC (Auto) < 1.0 /HPF (0.0-6.0) 08/07/16 12:34 Urine RBC (Auto) < 1.0 /HPF (0.0-6.0) 08/07/16 12:34 U Epithel Cells (Auto) < 1.0 /HPF (0-13.0) 08/07/16 12:34 Hyaline Casts 1 /LPF 08/07/16 12:34 Urine Mucus Few /HPF 08/07/16 12:34
[2016-08-14] MEDS: HEPARIN/ 0.45% NACL-25,000 UNIT/500 ML 25,000 UNIT/500 ML BAG IV SCH (19:34)
[2016-08-15] MEDS: PEPCID PO SCH ×2 (00:31→12:12)
[2016-08-15] MEDS: LOPRESSOR PO SCH ×2 (00:32→12:11)
[2016-08-15] MEDS: ZOCOR PO SCH (00:32)
[2016-08-15] MEDS: KEPPRA PO SCH ×2 (00:33→12:09)
[2016-08-15 05:40] LABS: Hematocrit 39.3 % (35.5-45.6); Hemoglobin 12.7 gm/dl (11.8-15.2); Mean Corpuscular HGB Conc 32 % (32-34); Mean Corpuscular Hemoglobin 31 pg (28-32); Mean Corpuscular Volume 95 fl (84-94); Platelet Count 308 K/mm3 (140-440); Red Blood Count 4.15 M/mm3 (3.65-5.03); White Blood Count 9.3 K/mm3 (4.5-11.0)
[2016-08-15 05:49] LABS: Anion Gap 17 mmol/L; Blood Urea Nitrogen 23 mg/dL (9-20); Calcium 8.9 mg/dL (8.4-10.2); Carbon Dioxide 25 mmol/L (22-30); Glucose 138 mg/dL (75-100); Potassium 3.5 mmol/L (3.6-5.0); Sodium 141 mmol/L (137-145)
--- NOTE | 2016-08-15 08:44 | Discharge Summary ---
Providers - Providers Date of Admission: 08/07/16 15:56 Date of discharge: 08/17/16 Attending physician: DEVORA FORD MD 08/10/16 11:11 Consult to Physician [CONS] Routine Consulting Provider: CARLOS MANUEL BALBUENA Reason For Exam: Altered mental status Place consult to:: Renée Notified:: left message Phone number called:: [phone] 08/11/16 04:59 Consult to Dietitian/Nutrition [CONS] Routine Physician Instructions: Reason For Exam: low opal score Reason for Consult: low opal score 08/12/16 15:36 Consult to Case Management [CONS] Routine Services Needed at Discharge: Other Notified:: Scarlett-Case Management If yes, spoke with:: Scarlett-case management Time called:: 16:00 Additional Physician Instructions: will need SNF on discharge. 08/13/16 18:00 Consult to Physician [CONS] Routine Consulting Provider: VICTOR HUGO HOBSON Reason For Exam: Ascending aortic aneurysm Place consult to:: Dr. Hobson Notified:: ANSWERING SERVICES Phone number called:: [phone] Was contact made?: Yes If yes, spoke with:: JAMES Time called:: 18:36 Comment:: BORA NOTIFIED Primary care physician: [employer] CLERK Hospitalization Reason for admission: AMS Condition: Good Hospital course: Patient is a 75M with a h/o HTN, CVA with LHP and Dysarthria, DM, COPD, Asthma, Gout, Chronic Respiratory Failure presents to ED for SOB and weakness. Pt unable to provide history. Pt family report patient found to have weakness and difficulty breathing over the past 3 days. 08/11/2016 MRI of the brain without contrast reported as no acute intracranial process, chronic findings a chronic cortical infarct in the right posterior watershed region measuring up to 4 cm. MRA of her head without contrast was a limited exam, no large vessel occlusion or aneurysm. 08/10/2016 2-D echocardiogram reported as normal left ventricular systolic function, estimated EF is 60-65 percent, mild concentric left ventricular hypertrophy, right ventricular mildly dilated right ventricular global systolic function is moderately reduced, right atrium is mildly dilated, and a limited study- no doppler valve assessment, clinical correlation-further evaluation of acute R heart strain-consider PE (no RVSP reported) by Dr. Perez. patient was seen by neurology and neurological work up including imaging was negative for acute CVA, patient although was started on keppra due to documented and witnessed seizure like activity. EEG was unremarkable per neurology. Patients mental status improved, he was mildly restrained due to wanting to get out of bed and disagreeing about how unsteady he is. This resolved and restraints were discontinued, the patient was seen by physical therapy. I also had recommended rehab due to family condition -family members were sick. he was seen by dietican and recommend purered diet, but he did not like that. He was treated for gout with good result noted. As a result of the findings in the Echocardiogram, CTA was obtained which showed PE, patient was started on Heparin drip and subsequently converted to warfarin. Education and risk was given to family. most interaction was with daughter was visiting from out of state. vascular was also consulted for review and monitoring of dilatation or aorta 4cm. this will be followed outpatient -Pulmonary Embolism -Functional quadriplegia, -Aortic aneurismal dilatation -Acute Metabolic Encephalopathy, poa -Late effects of CVA -Right sided weakness, -Left sided hemipeliga from previous stroke -?Seizure -Acute gout left wrist and left knee. -Dysphagia -Diabetes mellitus type 2. . Disposition: [id number]/[place]-06 HOME [facility] Time spent for discharge: 35 MINS Core Measure Documentation - Palliative Care Palliative Care/ Comfort Measures: Not Applicable - Core Measures Any of the following diagnoses?: DVT/PE - VTE Discharge Requirements Deep Vein Thrombosis/Pulmonary Embolism Present on Admission: Yes Has pt received <5 days of overlap therapy or INR<2.0: Yes Anticoagulant overlap therapy prescribed at discharge: Yes Exam - Physical Exam Narrative exam: VITAL SIGNS: Reviewed. GENERAL: The patient Chronically ill and cachetic Vital signs as documented. HEAD: No signs of head trauma. EYES: Pupils are equal. MOUTH: Oropharynx is normal. NECK: No adenopathy, no JVD. CHEST: Chest with clear breath sounds bilaterally. No wheezes, rales, or rhonchi. CARDIAC: Regular rate and rhythm. S1 and S2, without murmurs, gallops, or rubs. VASCULAR: No Edema. Peripheral pulses normal and equal in all extremities. ABDOMEN: Soft, without detectable tenderness. No sign of distention. No rebound or guarding, and no masses palpated. Bowel Sounds normal. MUSCULOSKELETAL: Range of motion left knee and left upper extremity. Extremities without clubbing, cyanosis or edema. NEUROLOGIC EXAM: AAO X3. No focal sensory deficits but motor strength on left upper extremity is 3 over 5 and 5/5 from the left.. not following commands, speech Normal PSYCHIATRIC: normal mood and affect SKIN: warmth noted, left wrist, tender to touch, no lesions noted. - Constitutional Vitals: Temp Pulse Resp BP Pulse Ox 98.1 F 66 18 166/83 93 08/15/16 07:28 08/15/16 07:28 08/15/16 07:28 08/15/16 07:28 08/15/16 00:00 Plan Activity: advance as tolerated, fall precautions Special Instructions: record daily weights, record daily BP diary, physical therapy, occupational therapy, home health RN Additional Instructions: INR monitoring by home health q2 days till therapeutic. Follow results with PCP. follow up with neurologist- can be arranged by PCP Follow up with: PRIMARY CARE, [Primary Care Provider] - 3-5 Days KEN SALEH MD [Staff Physician] - 7 Days Forms: Warfarin Discharge Instruction Prescriptions: amLODIPine [Norvasc] 5 mg PO QDAY #30 tablet Aspirin [Adult Low Dose Aspirin EC] 81 mg PO DAILY #30 tablet. Enoxaparin [Lovenox] 80 mg SQ Q12HR #10 syringe levETIRAcetam [Keppra TAB] 750 mg PO BID #60 tablet Lisinopril [Zestril TAB] 20 mg PO QDAY #30 tablet Warfarin [Coumadin] 5 mg PO DAILY@1700 #30 tablet
[2016-08-15] MEDS ORDERED: COUMADIN PO ONE (08:46)
[2016-08-15] MEDS: COLCRYS PO SCH (12:09)
[2016-08-15 12:11] LABS: INR 1.11 (0.87-1.13)
[2016-08-15] MEDS: ZESTRIL PO SCH (12:12)
[2016-08-15] MEDS: ASPIRIN PO SCH (12:12)
[2016-08-15] MEDS: VITAMIN B-1 PO SCH (12:13)
[2016-08-15] MEDS: NORVASC PO SCH (12:13)
[2016-08-15] MEDS: ZYLOPRIM PO SCH (12:20)
--- NOTE | 2016-08-15 14:33 | Progress Note ---
Assessment and Plan Assessment and plan: Patient is a 75M with a h/o HTN, CVA with LHP and Dysarthria, DM, COPD, Asthma, Gout, Chronic Respiratory Failure presents to ED for SOB and weakness. Pt unable to provide history. Pt family report patient found to have weakness and difficulty breathing over the past 3 days. 08/11/2016 MRI of the brain without contrast reported as no acute intracranial process, chronic findings a chronic cortical infarct in the right posterior watershed region measuring up to 4 cm. MRA of her head without contrast was a limited exam, no large vessel occlusion or aneurysm. 08/10/2016 2-D echocardiogram reported as normal left ventricular systolic function, estimated EF is 6065 percent, mild concentric left ventricular hypertrophy, right ventricular mildly dilated right ventricular global systolic function is moderately reduced, right atrium is mildly dilated, and a limited study- no doppler valve assessment, clinical correlation-further evaluation of acute R heart strain-consider PE (no RVSP reported) by Dr. Perez. -Functional quadriplegia, poa: Treat with PT/OT -Pulmonary Embolism- Continue warfarin, and heparin till therapeutic -Acute Metabolic Encephalopathy, poa -Late effects of CVA: Modify his diet to pured -Aortic aneurismal dilatation- Vascular consult. -Right sided weakness,-is has improved imaging studies negative for CVA. Continue on Aspirin. Neurology input pending. on discussion with family, also noted worsening left sided weakness also. Apparently has happened in the past -?Seizure- PER nursing documentation, involuntary movement, no further sz reported. [place] driving restrictions discussed in detail with the patient: Neurology evaluation noted. no further event noted. -Acute gout left wrist and left knee. improved. -Low grade temp- NO FURTHER FEVER- no evidence of sepsis, resolved -Dysphagia. Modified Barium swallow done, started on pureed diet -Diabetes mellitus type 2. Figerstick glucose qac and hs -DVT prophylaxis with Lovenox -Issues with the disposition: Patient is from [facility] but he ran out of days, patient used 20 days,that patient did not meet the 60 day rest period,would need to apply for medicaid application: notified CM. Patient is stable for discharge. Pending discharge. Disposition is an issue since patients family are all sick. . History Interval history: Patient seen and examined today, much more awake today and responsive, complained about his diet. No other adverse event reported. no shortness of breath noted. Hospitalist Physical - Physical exam Narrative exam: VITAL SIGNS: Reviewed. GENERAL: The patient Chronically ill and cachetic Vital signs as documented. HEAD: temporal wasting EYES: Pupils are equal. MOUTH: Oropharynx is normal. NECK: No adenopathy, no JVD. CHEST: Chest with clear breath sounds bilaterally. No wheezes, rales, or rhonchi. CARDIAC: Regular rate and rhythm. S1 and S2, without murmurs, gallops, or rubs. VASCULAR: No Edema. Peripheral pulses normal and equal in all extremities. ABDOMEN: Soft, without detectable tenderness. No sign of distention. No rebound or guarding, and no masses palpated. Bowel Sounds normal. MUSCULOSKELETAL: Range of motion left knee and left upper extremity. Extremities without clubbing, cyanosis or edema. NEUROLOGIC EXAM: awake, alert and oriented. No focal sensory deficits but motor strength on left upper extremity is 3 over 5 and 5/5 from the left. speech normal PSYCHIATRIC: normal mood and affect SKIN: no leasions noted. - Constitutional Vitals: Temp Pulse Resp BP Pulse Ox 98.1 F 76 18 166/83 98 08/15/16 07:28 08/15/16 12:11 08/15/16 07:28 08/15/16 07:28 08/15/16 07:28 General appearance: Present: mild distress Results - Labs CBC & Chem 7: 08/15/16 05:07 08/15/16 05:07 Labs: Laboratory Last Values WBC 9.3 K/mm3 (4.5-11.0) 08/15/16 05:07 RBC 4.15 M/mm3 (3.65-5.03) 08/15/16 05:07 Hgb 12.7 gm/dl (11.8-15.2) 08/15/16 05:07 Hct 39.3 % (35.5-45.6) 08/15/16 05:07 MCV 95 fl (84-94) H 08/15/16 05:07 MCH 31 pg (28-32) 08/15/16 05:07 MCHC 32 % (32-34) 08/15/16 05:07 RDW 15.0 % (13.2-15.2) 08/15/16 05:07 Plt Count 308 K/mm3 (140-440) 08/15/16 05:07 Lymph % (Auto) 13.4 % (13.4-35.0) 08/07/16 12:03 [place] % (Auto) 5.2 % (0.0-7.3) 08/07/16 12:03 Eos % (Auto) 0.5 % (0.0-4.3) 08/07/16 12:03 Baso % (Auto) 0.5 % (0.0-1.8) 08/07/16 12:03 Lymph # 1.2 K/mm3 (1.2-5.4) 08/07/16 12:03 [place] # 0.5 K/mm3 (0.0-0.8) 08/07/16 12:03 Eos # 0.0 K/mm3 (0.0-0.4) 08/07/16 12:03 Baso # 0.0 K/mm3 (0.0-0.1) 08/07/16 12:03 Seg Neutrophils % 80.4 % (40.0-70.0) H 08/07/16 12:03 Seg Neutrophils # 7.1 K/mm3 (1.8-7.7) 08/07/16 12:03 PT 14.2 Sec. (12.2-14.9) 08/15/16 11:16 INR 1.11 (0.87-1.13) 08/15/16 11:16 APTT 34.6 Sec. (24.2-36.6) 08/13/16 21:43 D-Dimer 718.59 ng/mlDDU (0-234) H 08/13/16 13:26 Heparin Anti-Xa Level 0.52 U.I./ml (0.3-0.7) 08/15/16 05:07 VBG pH 7.371 (7.320-7.420) 08/07/16 12:15 Sodium 141 mmol/L (137-145) 08/15/16 05:07 Potassium 3.5 mmol/L (3.6-5.0) L 08/15/16 05:07 Chloride 103.0 mmol/L (98-107) 08/15/16 05:07 Carbon Dioxide 25 mmol/L (22-30) 08/15/16 05:07 Anion Gap 17 mmol/L 08/15/16 05:07 BUN 23 mg/dL (9-20) H 08/15/16 05:07 Creatinine 1.1 mg/dL (0.8-1.5) 08/15/16 05:07 Estimated GFR > 60 ml/min 08/15/16 05:07 BUN/Creatinine Ratio 20.90 % 08/15/16 05:07 Glucose 138 mg/dL (75-100) H 08/15/16 05:07 POC Glucose 197 (70-105) H 08/15/16 11:54 Lactic Acid 1.00 mmol/L (0.7-2.0) 08/12/16 08:35 Calcium 8.9 mg/dL (8.4-10.2) 08/15/16 05:07 Total Bilirubin 0.30 mg/dL (0.1-1.2) 08/07/16 12:03 AST 10 units/L (5-40) 08/07/16 12:03 ALT 11 units/L (7-56) 08/07/16 12:03 Alkaline Phosphatase 51 units/L (35-129) 08/07/16 12:03 Ammonia 29.0 umol/L (25-60) 08/12/16 08:35 Troponin T < 0.010 ng/mL (0.00-0.029) 08/07/16 12:03 Total Protein 6.8 g/dL (6.3-8.2) 08/07/16 12:03 Albumin 3.6 g/dL (3.9-5) L 08/07/16 12:03 Albumin/Globulin Ratio 1.1 % 08/07/16 12:03 Triglycerides 123 mg/dL (2-149) 08/08/16 08:50 Cholesterol 141 mg/dL (50-199) 08/08/16 08:50 LDL Cholesterol Direct 85 mg/dL (50-130) 08/08/16 08:50 HDL Cholesterol 32 mg/dL (40-59) L 08/08/16 08:50 Cholesterol/HDL Ratio 4.40 % 08/08/16 08:50 TSH 1.120 mlU/mL (0.270-4.200) 08/10/16 11:32 Urine Color Yellow (Yellow) 08/07/16 12:34 Urine Turbidity Clear (Clear) 08/07/16 12:34 Urine pH 5.0 (5.0-7.0) 08/07/16 12:34 Ur Specific [place] 1.019 (1.003-1.030) 08/07/16 12:34 Urine Protein <15 mg/dl mg/dL (Negative) 08/07/16 12:34 Urine Glucose (UA) Neg mg/dL (Negative) 08/07/16 12:34 Urine Ketones Neg mg/dL (Negative) 08/07/16 12:34 Urine Blood Neg (Negative) 08/07/16 12:34 Urine Nitrite Neg (Negative) 08/07/16 12:34 Urine Bilirubin Neg (Negative) 08/07/16 12:34 Urine Urobilinogen < 2.0 mg/dL (<2.0) 08/07/16 12:34 Ur Leukocyte Esterase Neg (Negative) 08/07/16 12:34 Urine WBC (Auto) < 1.0 /HPF (0.0-6.0) 08/07/16 12:34 Urine RBC (Auto) < 1.0 /HPF (0.0-6.0) 08/07/16 12:34 U Epithel Cells (Auto) < 1.0 /HPF (0-13.0) 08/07/16 12:34 Hyaline Casts 1 /LPF 08/07/16 12:34 Urine Mucus Few /HPF 08/07/16 12:34
[2016-08-15] MEDS: HEPARIN/ 0.45% NACL-25,000 UNIT/500 ML 25,000 UNIT/500 ML BAG IV SCH (18:35)
[2016-08-16] MEDS: PEPCID PO SCH ×3 (00:24→22:45)
[2016-08-16] MEDS: ZOCOR PO SCH ×2 (00:25→22:45)
[2016-08-16] MEDS: KEPPRA PO SCH ×3 (00:25→22:45)
[2016-08-16] MEDS: LOPRESSOR PO SCH ×3 (00:26→22:45)
--- NOTE | 2016-08-16 06:11 | Progress Note ---
Assessment and Plan Assessment and plan: Patient is a 75M with a h/o HTN, CVA with LHP and Dysarthria, DM, COPD, Asthma, Gout, Chronic Respiratory Failure presents to ED for SOB and weakness. Pt unable to provide history. Pt family report patient found to have weakness and difficulty breathing over the past 3 days. 08/11/2016 MRI of the brain without contrast reported as no acute intracranial process, chronic findings a chronic cortical infarct in the right posterior watershed region measuring up to 4 cm. MRA of her head without contrast was a limited exam, no large vessel occlusion or aneurysm. 08/10/2016 2-D echocardiogram reported as normal left ventricular systolic function, estimated EF is 6065 percent, mild concentric left ventricular hypertrophy, right ventricular mildly dilated right ventricular global systolic function is moderately reduced, right atrium is mildly dilated, and a limited study- no doppler valve assessment, clinical correlation-further evaluation of acute R heart strain-consider PE (no RVSP reported) by Dr. Perez. -Functional quadriplegia, poa: Treat with PT/OT -Pulmonary Embolism- Continue warfarin, and heparin till therapeutic -Acute Metabolic Encephalopathy, poa- IMPROVING BACK TO BASELINE -Late effects of CVA: Modify his diet to pured -Aortic aneurismal dilatation- Vascular consult. -Right sided weakness,-is has improved imaging studies negative for CVA. Continue on Aspirin. Neurology input pending. on discussion with family, also noted worsening left sided weakness also. Apparently has happened in the past -?Seizure- PER nursing documentation, involuntary movement, no further sz reported. [place] driving restrictions discussed in detail with the patient: Neurology evaluation noted. no further event noted. -Acute gout left wrist and left knee. improved. -Hypertensive Urgency -Increase ACEI TO 20MG. -improved with the change -Dysphagia. Modified Barium swallow done, started on pureed diet -Diabetes mellitus type 2. Figerstick glucose qac and hs -DVT prophylaxis with Lovenox -Issues with the disposition: Patient is from [facility] but he ran out of days, patient used 20 days,that patient did not meet the 60 day rest period,would need to apply for medicaid application: notified CM. Patient is stable for discharge. Pending discharge. Disposition is an issue since patients family are all sick. PATIENT APPEALED DISCHARGE. . History Interval history: Patient seen and examined today, much more awake today and responsive, patient was placed on restraints due to concern about his stability and attempt to get out of bed. His is not confused but just does not want to listen much. Hospitalist Physical - Physical exam Narrative exam: VITAL SIGNS: Reviewed. GENERAL: The patient Chronically ill and cachetic. Vital signs as documented. HEAD: No signs of head trauma. EYES: Pupils are equal. MOUTH: Oropharynx is normal. NECK: No adenopathy, no JVD. CHEST: Chest with clear breath sounds bilaterally. No wheezes, rales, or rhonchi. CARDIAC: Regular rate and rhythm. S1 and S2, without murmurs, gallops, or rubs. VASCULAR: No Edema. Peripheral pulses normal and equal in all extremities. ABDOMEN: Soft, without detectable tenderness. No sign of distention. No rebound or guarding, and no masses palpated. Bowel Sounds normal. MUSCULOSKELETAL: Range of motion left knee and left upper extremity. Extremities without clubbing, cyanosis or edema. NEUROLOGIC EXAM: drowsy and oriented x 1. No focal sensory deficits but motor strength on left upper extremity is 3 over 5 and 5/5 from the left.. not following commands, speech slurred, PSYCHIATRIC: unable to assess SKIN: warmth noted, left wrist, tender to touch, no lesions noted. - Constitutional Vitals: Temp Pulse Resp BP Pulse Ox 98.0 F 89 20 169/124 98 08/16/16 00:00 08/16/16 00:26 08/16/16 00:00 08/16/16 00:26 08/16/16 00:00 General appearance: Present: mild distress Results - Labs CBC & Chem 7: 08/16/16 07:58 08/16/16 07:58 Labs: Laboratory Last Values WBC 9.3 K/mm3 (4.5-11.0) 08/15/16 05:07 RBC 4.15 M/mm3 (3.65-5.03) 08/15/16 05:07 Hgb 12.7 gm/dl (11.8-15.2) 08/15/16 05:07 Hct 39.3 % (35.5-45.6) 08/15/16 05:07 MCV 95 fl (84-94) H 08/15/16 05:07 MCH 31 pg (28-32) 08/15/16 05:07 MCHC 32 % (32-34) 08/15/16 05:07 RDW 15.0 % (13.2-15.2) 08/15/16 05:07 Plt Count 308 K/mm3 (140-440) 08/15/16 05:07 Lymph % (Auto) 13.4 % (13.4-35.0) 08/07/16 12:03 [place] % (Auto) 5.2 % (0.0-7.3) 08/07/16 12:03 Eos % (Auto) 0.5 % (0.0-4.3) 08/07/16 12:03 Baso % (Auto) 0.5 % (0.0-1.8) 08/07/16 12:03 Lymph # 1.2 K/mm3 (1.2-5.4) 08/07/16 12:03 [place] # 0.5 K/mm3 (0.0-0.8) 08/07/16 12:03 Eos # 0.0 K/mm3 (0.0-0.4) 08/07/16 12:03 Baso # 0.0 K/mm3 (0.0-0.1) 08/07/16 12:03 Seg Neutrophils % 80.4 % (40.0-70.0) H 08/07/16 12:03 Seg Neutrophils # 7.1 K/mm3 (1.8-7.7) 08/07/16 12:03 PT 14.2 Sec. (12.2-14.9) 08/15/16 11:16 INR 1.11 (0.87-1.13) 08/15/16 11:16 APTT 34.6 Sec. (24.2-36.6) 08/13/16 21:43 D-Dimer 718.59 ng/mlDDU (0-234) H 08/13/16 13:26 Heparin Anti-Xa Level 0.52 U.I./ml (0.3-0.7) 08/15/16 05:07 VBG pH 7.371 (7.320-7.420) 08/07/16 12:15 Sodium 141 mmol/L (137-145) 08/15/16 05:07 Potassium 3.5 mmol/L (3.6-5.0) L 08/15/16 05:07 Chloride 103.0 mmol/L (98-107) 08/15/16 05:07 Carbon Dioxide 25 mmol/L (22-30) 08/15/16 05:07 Anion Gap 17 mmol/L 08/15/16 05:07 BUN 23 mg/dL (9-20) H 08/15/16 05:07 Creatinine 1.1 mg/dL (0.8-1.5) 08/15/16 05:07 Estimated GFR > 60 ml/min 08/15/16 05:07 BUN/Creatinine Ratio 20.90 % 08/15/16 05:07 Glucose 138 mg/dL (75-100) H 08/15/16 05:07 POC Glucose 129 (70-105) H 08/15/16 21:31 Lactic Acid 1.00 mmol/L (0.7-2.0) 08/12/16 08:35 Calcium 8.9 mg/dL (8.4-10.2) 08/15/16 05:07 Total Bilirubin 0.30 mg/dL (0.1-1.2) 08/07/16 12:03 AST 10 units/L (5-40) 08/07/16 12:03 ALT 11 units/L (7-56) 08/07/16 12:03 Alkaline Phosphatase 51 units/L (35-129) 08/07/16 12:03 Ammonia 29.0 umol/L (25-60) 08/12/16 08:35 Troponin T < 0.010 ng/mL (0.00-0.029) 08/07/16 12:03 Total Protein 6.8 g/dL (6.3-8.2) 08/07/16 12:03 Albumin 3.6 g/dL (3.9-5) L 08/07/16 12:03 Albumin/Globulin Ratio 1.1 % 08/07/16 12:03 Triglycerides 123 mg/dL (2-149) 08/08/16 08:50 Cholesterol 141 mg/dL (50-199) 08/08/16 08:50 LDL Cholesterol Direct 85 mg/dL (50-130) 08/08/16 08:50 HDL Cholesterol 32 mg/dL (40-59) L 08/08/16 08:50 Cholesterol/HDL Ratio 4.40 % 08/08/16 08:50 TSH 1.120 mlU/mL (0.270-4.200) 08/10/16 11:32 Urine Color Yellow (Yellow) 08/07/16 12:34 Urine Turbidity Clear (Clear) 08/07/16 12:34 Urine pH 5.0 (5.0-7.0) 08/07/16 12:34 Ur Specific [place] 1.019 (1.003-1.030) 08/07/16 12:34 Urine Protein <15 mg/dl mg/dL (Negative) 08/07/16 12:34 Urine Glucose (UA) Neg mg/dL (Negative) 08/07/16 12:34 Urine Ketones Neg mg/dL (Negative) 08/07/16 12:34 Urine Blood Neg (Negative) 08/07/16 12:34 Urine Nitrite Neg (Negative) 08/07/16 12:34 Urine Bilirubin Neg (Negative) 08/07/16 12:34 Urine Urobilinogen < 2.0 mg/dL (<2.0) 08/07/16 12:34 Ur Leukocyte Esterase Neg (Negative) 08/07/16 12:34 Urine WBC (Auto) < 1.0 /HPF (0.0-6.0) 08/07/16 12:34 Urine RBC (Auto) < 1.0 /HPF (0.0-6.0) 08/07/16 12:34 U Epithel Cells (Auto) < 1.0 /HPF (0-13.0) 08/07/16 12:34 Hyaline Casts 1 /LPF 08/07/16 12:34 Urine Mucus Few /HPF 08/07/16 12:34
[2016-08-16 08:33] LABS: Hematocrit 38.8 % (35.5-45.6); Hemoglobin 12.8 gm/dl (11.8-15.2); Mean Corpuscular HGB Conc 33 % (32-34); Mean Corpuscular Hemoglobin 31 pg (28-32); Mean Corpuscular Volume 95 fl (84-94); Platelet Count 329 K/mm3 (140-440); Red Cell Distribution Width 14.9 % (13.2-15.2); White Blood Count 6.4 K/mm3 (4.5-11.0)
[2016-08-16 08:41] LABS: INR 1.2 (0.87-1.13)
[2016-08-16 08:57] LABS: Blood Urea Nitrogen 15 mg/dL (9-20); Carbon Dioxide 26 mmol/L (22-30); Glucose 143 mg/dL (75-100)
[2016-08-16 09:04] LABS: Anion Gap 15 mmol/L; Chloride 103.7 mmol/L (98-107); Potassium 3.7 mmol/L (3.6-5.0); Sodium 141 mmol/L (137-145)
[2016-08-16] MEDS: NORVASC PO SCH (12:45)
[2016-08-16] MEDS: ASPIRIN PO SCH (12:45)
[2016-08-16] MEDS: VITAMIN B-1 PO SCH (12:45)
[2016-08-16] MEDS: ZESTRIL PO SCH (12:46)
[2016-08-16] MEDS: ZYLOPRIM PO SCH (12:47)
[2016-08-16] MEDS: COLCRYS PO SCH (12:58)
[2016-08-16] MEDS: COUMADIN PO SCH (18:21)
[2016-08-16] MEDS: HEPARIN/ 0.45% NACL-25,000 UNIT/500 ML 25,000 UNIT/500 ML BAG IV SCH (18:21)
[2016-08-17 06:47] LABS: Hematocrit 39.3 % (35.5-45.6); Hemoglobin 12.7 gm/dl (11.8-15.2)
[2016-08-17 06:59] LABS: INR 1.39 (0.87-1.13)
[2016-08-17] MEDS: ZYLOPRIM PO SCH (10:39)
[2016-08-17] MEDS: VITAMIN B-1 PO SCH (10:39)
[2016-08-17] MEDS: NORVASC PO SCH (10:39)
[2016-08-17] MEDS: ASPIRIN PO SCH (10:39)
[2016-08-17] MEDS: ZESTRIL PO SCH (10:39)
[2016-08-17] MEDS: COLCRYS PO SCH (10:39)
[2016-08-17] MEDS: PEPCID PO SCH (10:39)
[2016-08-17] MEDS: KEPPRA PO SCH (10:40)
[2016-08-17] MEDS: LOPRESSOR PO SCH (10:41)
[2016-08-17 16:48] VITALS: BP 120/68
[2016-08-17] MEDS: COUMADIN PO SCH (17:07)
== END 2016-08-17 17:20 | disposition home health service (06) | DRG 175 ==
LOC: ED 11:10 → 4A 15:56 → 3A 08-12 18:29
PROVIDERS: ADMIT Internal Medicine; ATTEND Internal Medicine
DX: I26.99 Other pulmonary embolism without acute cor pulmonale (principal); G93.41 Metabolic encephalopathy; R53.2 Functional quadriplegia; J96.10 Chronic respiratory failure, unspecified whether with hypoxia or hypercapnia; L03.114 Cellulitis of left upper limb; I69.954 Hemiplegia and hemiparesis following unspecified cerebrovascular disease affecting left non-dominant side; M10.9 Gout, unspecified; J44.9 Chronic obstructive pulmonary disease, unspecified; I11.0 Hypertensive heart disease with heart failure; E11.9 Type 2 diabetes mellitus without complications; I16.0 Hypertensive urgency; R13.10 Dysphagia, unspecified; R47.1 Dysarthria and anarthria; I50.9 Heart failure, unspecified; I77.810 Thoracic aortic ectasia; Z83.3 Family history of diabetes mellitus; Z79.82 Long term (current) use of aspirin; Z82.49 Family history of ischemic heart disease and other diseases of the circulatory system; Z79.899 Other long term (current) drug therapy
CPT/HCPCS: 36415; 70450; 70470; 70544; 70551; 71010; 71275; 74160; 74230; 80048; 80053; 80061; 81001; 82140; 82805; 82962; 84443; 84484; 85014; 85018; 85025; 85027; 85049; 85379; 85520; 85610; 85730; 87040; 87086; 93005; 93010; 93308; 93321; 93325; 93880; 93970; 96365; 96366; 96367; 96375; G8978-GP; G8979-GP; G8987-GO; G8988-GO; G8996-GN; G8997-GN; J0696; J1644; J1650; J1953; J2060; J2270; J2920; J3370; J3486; J7030; J7040; J7050; Q9967